=== PATIENT | female | born 1950 | race Caucasian/White ===

== ENCOUNTER 2019-01-20 22:43 | Inpatient (IN) | payer MEDICARE, OTHER ==
[~2019-01-20] VITALS: Ht 165.1 cm; Wt 93.3 kg
[~2019-01-20 22:43] MED LIST: HYDACE5 PO; NAPR550 PO
[2019-01-21 00:08] LABS: BASOPHILS ABSOLUTE AUTO 0.09 K/mm3 (0.00-0.23); BASOPHILS PERCENT AUTO 1 % (0-2); EOSINOPHILS ABSOLUTE AUTO 0.07 K/mm3 (0.00-0.68); EOSINOPHILS PERCENT AUTO 0 % (0-6); Hematocrit 41.7 % (33.0-51.0); Hemoglobin 13.5 g/dL (11.5-16.0); IMMATURE GRAN ABSOLUTE AUTO 0.58 K/mm3 (0.00-0.10); IMMATURE GRAN PERCENT AUTO 3 % (0-1); LYMPHOCYTES ABSOLUTE AUTO 1.13 K/mm3 (0.84-5.20); LYMPHOCYTES PERCENT AUTO 6 % (21-46); MONOCYTES ABSOLUTE AUTO 1.16 K/mm3 (0.16-1.47); MONOCYTES PERCENT AUTO 6 % (4-13); Mean Corpuscular HGB 30.4 pg (26.0-34.0); Mean Corpuscular HGB Conc 32.4 g/dL (31.5-36.5); Mean Corpuscular Volume 94 fL (80-100); Mean Platelet Volume 10.4 fL (9.1-12.4); NEUTROPHILS ABSOLUTE AUTO 15.64 K/mm3 (1.96-9.15); NEUTROPHILS PERCENT AUTO 84 % (41-73); Platelet Count 496 K/mm3 (150-400); RDW Coefficient Variation 14.6 % (11.7-14.2); RDW Standard Deviation 50.5 fL (35.1-46.3); Red Blood Cell Count 4.44 M/mm3 (3.80-5.20); White Blood Cell Count 18.67 K/mm3 (4.00-11.30)
[2019-01-21 00:27] LABS: Alanine Aminotransfer (ALT/SGP 62 U/L (12-78); Albumin/Globulin Ratio 0.4 (0.8-1.8); Alk Phos 165 U/L (50-136); Anion Gap 9 mmol/L (6-16); Aspartate Aminotrans (AST/SGOT 78 U/L (12-37); Bilirubin, Total 0.3 mg/dL (0.1-1.0); Blood Urea Nitrogen 28 mg/dL (8-24); CO2, Blood 27 mmol/L (21-32); Calcium, Blood 8.9 mg/dL (8.5-10.1); Chloride, Blood 96 mmol/L (98-108); Creatinine, Blood 1.12 mg/dL (0.40-1.00); Globulin, Blood 5.7 g/dL (2.2-4.0); Glomerular Filtration Rate 51 (60-); Glucose, Blood 100 mg/dL (70-99); Potassium, Blood 3.5 mmol/L (3.5-5.5); Sodium, Blood 132 mmol/L (136-145); Total Protein, Blood 7.7 g/dL (6.4-8.2); Troponin I <0.015 ng/mL (0.000-0.040)
--- NOTE | 2019-01-21 07:18 | NUR ---
SHIFT SUMMARY PT ARRIVED TO ROOM APPROX 0150. C/O PAIN IN LEGS AND MEDICATED PER EMAR. GOT ORDER FOR NORCO FROM DR GARZA SINCE PT SAID PAIN WASN'T GETTING ANY BETTER. SHE WAS ABLE TO DOZE AND ON AND OFF AFTER THE NORCO. SBA TO BA. CALL LIGHT IN REACH
--- NOTE | 2019-01-21 16:01 | NUR ---
PATIENT HAS SLEPT MOST OF THE SHIFT. SHE IS ALERT AND ORIENTED AND ABLE TO EXPRESS ANY NEEDS. HER LEGS CONTINUE TO BE DIRECTOR TRAFFIC AND PLANNING WITH CHUCKS UNDER THEM. PATIENT HAS NOT REQUESTED ANY PAIN MEDS THIS SHIFT. NO CHANGES TO CONDITION.
[2019-01-22 05:34] LABS: BASOPHILS ABSOLUTE AUTO 0.11 K/mm3 (0.00-0.23); BASOPHILS PERCENT AUTO 1 % (0-2); EOSINOPHILS ABSOLUTE AUTO 0.14 K/mm3 (0.00-0.68); EOSINOPHILS PERCENT AUTO 1 % (0-6); Hematocrit 37.1 % (33.0-51.0); IMMATURE GRAN ABSOLUTE AUTO 0.82 K/mm3 (0.00-0.10); IMMATURE GRAN PERCENT AUTO 5 % (0-1); LYMPHOCYTES ABSOLUTE AUTO 1.35 K/mm3 (0.84-5.20); LYMPHOCYTES PERCENT AUTO 8 % (21-46); MONOCYTES ABSOLUTE AUTO 0.83 K/mm3 (0.16-1.47); MONOCYTES PERCENT AUTO 5 % (4-13); Mean Corpuscular HGB 29.8 pg (26.0-34.0); Mean Corpuscular HGB Conc 32.3 g/dL (31.5-36.5); Mean Corpuscular Volume 92 fL (80-100); Mean Platelet Volume 10.1 fL (9.1-12.4); NEUTROPHILS ABSOLUTE AUTO 13.73 K/mm3 (1.96-9.15); NEUTROPHILS PERCENT AUTO 81 % (41-73); Platelet Count 554 K/mm3 (150-400); RDW Coefficient Variation 14.7 % (11.7-14.2); RDW Standard Deviation 50.7 fL (35.1-46.3); Red Blood Cell Count 4.03 M/mm3 (3.80-5.20); White Blood Cell Count 16.98 K/mm3 (4.00-11.30)
[2019-01-22 05:51] LABS: Anion Gap 9 mmol/L (6-16); Blood Urea Nitrogen 20 mg/dL (8-24); Bun/Creatinine Ratio 23.6 (12.0-20.0); CO2, Blood 26 mmol/L (21-32); Calcium, Blood 8.1 mg/dL (8.5-10.1); Chloride, Blood 101 mmol/L (98-108); Creatinine, Blood 0.85 mg/dL (0.40-1.00); Glomerular Filtration Rate >60 (60-); Glucose, Blood 128 mg/dL (70-99); Potassium, Blood 3.7 mmol/L (3.5-5.5); Sodium, Blood 136 mmol/L (136-145)
--- NOTE | 2019-01-22 06:29 | NUR ---
SHIFT SUMMARY A/O SBA TO BA. C/O PAIN IN LEGS AND MEDICATED PER EMAR X2. SHE WAS ABLE TO SLEEP THROUGH THE NIGHT. CALL LIGHT IN REACH
[2019-01-22 08:53] LABS: Alanine Aminotransfer (ALT/SGP 64 U/L (12-78); Albumin, Blood 1.7 g/dL (3.4-5.0); Albumin/Globulin Ratio 0.4 (0.8-1.8); Alk Phos 127 U/L (50-136); Aspartate Aminotrans (AST/SGOT 87 U/L (12-37); Bilirubin, Direct <0.1 mg/dL (0.0-0.3); Bilirubin, Indirect Unable to Calculate mg/dL (0.1-0.7); Bilirubin, Total 0.2 mg/dL (0.1-1.0); Globulin, Blood 4.5 g/dL (2.2-4.0); Total Protein, Blood 6.2 g/dL (6.4-8.2)
--- NOTE | 2019-01-22 17:13 | NUR ---
PATIENT HAD SHOWER THIS SHIFT AND REQUIRED PAIN MEDS FOR HER LEGS. SOME OF THE SCABS WERE WASHED OFF IN SHOWER. LEGS ARE ELEVATED ON PILLOWS AND CHUCKS AND REMAIN PLANT PACKER. SHE IS ABLE TO AMBUATE AROUND THE ROOM AND IS INDEPENDENT IN ROOM. SHE IS COOPERATIVE WITH STAFF. NO OTHER CHANGES NOTED THIS SHIFT.
--- NOTE | 2019-01-23 04:55 | NUR ---
SHIFT SUMMARY PT A/O SBA C WALKER TO BSC. C/O PAIN IN LEGS AND MEDICATED PER EMAR. SHE WAS ABLE TO DOZE ON AND OFF T/O NIGHT. CALL LIGHT IN REACH
[2019-01-23 05:09] LABS: Hematocrit 35.9 % (33.0-51.0); Hemoglobin 11.5 g/dL (11.5-16.0); Mean Corpuscular HGB 29.6 pg (26.0-34.0); Mean Corpuscular Volume 93 fL (80-100); Mean Platelet Volume 9.7 fL (9.1-12.4); Platelet Count 613 K/mm3 (150-400); RDW Coefficient Variation 14.9 % (11.7-14.2); RDW Standard Deviation 50.6 fL (35.1-46.3); Red Blood Cell Count 3.88 M/mm3 (3.80-5.20); White Blood Cell Count 16.29 K/mm3 (4.00-11.30)
[2019-01-23 05:54] LABS: Albumin, Blood 1.6 g/dL (3.4-5.0); Albumin/Globulin Ratio 0.3 (0.8-1.8); Alk Phos 123 U/L (50-136); Anion Gap 6 mmol/L (6-16); Bilirubin, Total 0.4 mg/dL (0.1-1.0); Blood Urea Nitrogen 17 mg/dL (8-24); Bun/Creatinine Ratio 23.6 (12.0-20.0); CO2, Blood 28 mmol/L (21-32); Calcium, Blood 7.9 mg/dL (8.5-10.1); Chloride, Blood 103 mmol/L (98-108); Creatinine, Blood 0.72 mg/dL (0.40-1.00); Globulin, Blood 4.6 g/dL (2.2-4.0); Glomerular Filtration Rate >60 (60-); Glucose, Blood 138 mg/dL (70-99); Potassium, Blood 4.1 mmol/L (3.5-5.5); Sodium, Blood 137 mmol/L (136-145); Total Protein, Blood 6.2 g/dL (6.4-8.2)
[2019-01-23 05:56] LABS: Alanine Aminotransfer (ALT/SGP 55 U/L (12-78); Aspartate Aminotrans (AST/SGOT 62 U/L (12-37)
[2019-01-23 06:30] LABS: BASOPHILS PERCENT MAN 0 % (0-2); EOSINOPHILS ABSOLUTE MAN 0.16 K/mm3 (0.00-0.68); EOSINOPHILS PERCENT MAN 1 % (0-6); LYMPHOCYTES PERCENT MAN 8 % (21-46); METAMYELOCYTE ABSOLUTE MAN 0.48 K/mm3 (0.00-0.00); METAMYELOCYTE PERCENT MAN 3 % (0-0); MONOCYTES ABSOLUTE MAN 0.65 K/mm3 (0.16-1.47); MONOCYTES PERCENT MAN 4 % (4-13); MYELOCYTE ABSOLUTE MAN 0.48 K/mm3 (0.00-0.00); MYELOCYTE PERCENT MAN 3 % (0-0); NEUTROPHILS ABSOLUTE MAN 13.19 K/mm3 (1.96-9.15); SEG NEUTROPHILS PERCENT MAN 81 % (41-73); TOTAL CELLS COUNTED 100
--- NOTE | 2019-01-23 17:27 | NUR ---
SHIFT SUMMARY PT A&O. CALM AND COOPERATIVE WITH CARE. PT RESTING IN BED DURING SHIFT, SBA WITH WALKER. PT REPORTS PAIN, MEDICATED X2 WITH NORCO AND X1 WITH FENTNYL. PT DENIES SOB AND N/V DURING SHIFT. PT ON RA, DIM T/O. BLE WOUNDS CLEARNED AND NEW PICTURES TAKEN, ON BLE-TOES DARK BLISTERED IN APPEARANCE, ON LEFT FOOT DARK BLISTERING ALONG ARCH AND OUTSIDE EDGE, DT TLAANG NOTIFIED, IN TO ASSESS PT, NEW ORDERS FOR CT BLE. VSS. NO OTHER ACUTE CHANGES NOTED DURING SHIFT. WILL COTNINUE TO MONITOR UNTIL REPORT GIVEN TO ONCOMING RN.
--- NOTE | 2019-01-24 05:11 | NUR ---
SHIFT SUMMARY: PT IS A&O, SBA TO BSC. CALL LIGHT APPROP. WEEPING CELLULITIS TO BLE; L LEG IS APPEARD WORSE THAN R LEG. OPEN WOUNDS, BLISTERS, AND SS DRAINAGE TO BILATERAL LEGS. WOUNDS ARE LEXIS PER ORDERS; ABSORBENT PAD UNDER BLE TO COLLECT DRAINAGE. PT IS WIMPERING IN PAIN T/O SHIFT, BESIDES DURING THE FEW HRS OF SLEEP PT HAD. TREATED 2X c PRN NORCO 10MG AND 2X c PRN FENTANYL 25 MCG. OFFERS "SOME RELIEF, BUT NOT ENOUGH" PER PT. RESP E/U ON ROOM AIR, SOB c EXERTION. PT CONT TO REFUSE SCDs REGARDLESS OF EDUCATION FOR DVT PROPHYLAXIS. NO OTHER CHANGES TO REPORT, WILL CONT TO MONITOR AND PROVIDE CARE UNTIL PRESUMED BY ONCOMING RN.
[2019-01-24 05:35] LABS: BASOPHILS ABSOLUTE AUTO 0.13 K/mm3 (0.00-0.23); BASOPHILS PERCENT AUTO 1 % (0-2); EOSINOPHILS ABSOLUTE AUTO 0.24 K/mm3 (0.00-0.68); EOSINOPHILS PERCENT AUTO 2 % (0-6); Hematocrit 37.5 % (33.0-51.0); Hemoglobin 11.7 g/dL (11.5-16.0); IMMATURE GRAN ABSOLUTE AUTO 0.98 K/mm3 (0.00-0.10); IMMATURE GRAN PERCENT AUTO 7 % (0-1); LYMPHOCYTES ABSOLUTE AUTO 1.43 K/mm3 (0.84-5.20); LYMPHOCYTES PERCENT AUTO 10 % (21-46); MONOCYTES ABSOLUTE AUTO 0.79 K/mm3 (0.16-1.47); MONOCYTES PERCENT AUTO 6 % (4-13); Mean Corpuscular HGB 30.2 pg (26.0-34.0); Mean Corpuscular HGB Conc 31.2 g/dL (31.5-36.5); Mean Corpuscular Volume 97 fL (80-100); Mean Platelet Volume 9.2 fL (9.1-12.4); NEUTROPHILS ABSOLUTE AUTO 10.72 K/mm3 (1.96-9.15); NEUTROPHILS PERCENT AUTO 75 % (41-73); Platelet Count 667 K/mm3 (150-400); RDW Coefficient Variation 15.1 % (11.7-14.2); RDW Standard Deviation 53.7 fL (35.1-46.3); Red Blood Cell Count 3.87 M/mm3 (3.80-5.20); White Blood Cell Count 14.29 K/mm3 (4.00-11.30)
[2019-01-24 05:58] LABS: Albumin, Blood 1.7 g/dL (3.4-5.0); Anion Gap 4 mmol/L (6-16); Blood Urea Nitrogen 15 mg/dL (8-24); Bun/Creatinine Ratio 20.5 (12.0-20.0); CO2, Blood 31 mmol/L (21-32); Chloride, Blood 105 mmol/L (98-108); Creatinine, Blood 0.73 mg/dL (0.40-1.00); Glomerular Filtration Rate >60 (60-); Glucose, Blood 115 mg/dL (70-99); Potassium, Blood 4.4 mmol/L (3.5-5.5); Sodium, Blood 140 mmol/L (136-145); Vancomycin, Trough 12.6 ug/mL (5.0-10.0)
--- NOTE | 2019-01-24 17:39 | NUR ---
SHIFT SUMMARY PT A&OX3, COOPERATIVE WITH CARE. PT RESTING IN BED DURING SHIFT. IND TO BSC. REPORTS PAIN TO BLE, MEDICATED PER EMAR. PT RECEIVING IV ANTIBIOTIC FOR BLE CELLULITIS, BLISTERS PRESENT, BOTH LEGS WEEPING. WOUNDS CLEANED AND AIR CHUX CHANGED. PT RECEIVING IV POTASSIUM PHOSPHATE. BLE EDEMA, LEFT WORSE THEN RIGHT. VSS. NO OTHER ACUTE CHANGES NOTED DURING SHIFT. WILL CONTINUE TO MONITOR UNTIL REPORT GIVEN TO ONCOMING RN.
[2019-01-25 05:18] LABS: BASOPHILS ABSOLUTE AUTO 0.09 K/mm3 (0.00-0.23); BASOPHILS PERCENT AUTO 1 % (0-2); EOSINOPHILS ABSOLUTE AUTO 0.29 K/mm3 (0.00-0.68); EOSINOPHILS PERCENT AUTO 2 % (0-6); Hematocrit 37.9 % (33.0-51.0); Hemoglobin 11.8 g/dL (11.5-16.0); IMMATURE GRAN ABSOLUTE AUTO 0.73 K/mm3 (0.00-0.10); IMMATURE GRAN PERCENT AUTO 6 % (0-1); LYMPHOCYTES ABSOLUTE AUTO 1.46 K/mm3 (0.84-5.20); LYMPHOCYTES PERCENT AUTO 12 % (21-46); MONOCYTES ABSOLUTE AUTO 0.82 K/mm3 (0.16-1.47); MONOCYTES PERCENT AUTO 7 % (4-13); Mean Corpuscular HGB 29.9 pg (26.0-34.0); Mean Corpuscular HGB Conc 31.1 g/dL (31.5-36.5); Mean Corpuscular Volume 96 fL (80-100); Mean Platelet Volume 9.1 fL (9.1-12.4); NEUTROPHILS ABSOLUTE AUTO 8.68 K/mm3 (1.96-9.15); NEUTROPHILS PERCENT AUTO 72 % (41-73); Platelet Count 696 K/mm3 (150-400); RDW Standard Deviation 53.9 fL (35.1-46.3); Red Blood Cell Count 3.95 M/mm3 (3.80-5.20); White Blood Cell Count 12.07 K/mm3 (4.00-11.30)
[2019-01-25 05:37] LABS: Albumin, Blood 1.8 g/dL (3.4-5.0); Anion Gap 5 mmol/L (6-16); BASOPHILS ABSOLUTE MAN 0.12 K/mm3 (0.00-0.23); BASOPHILS PERCENT MAN 1 % (0-2); Blood Urea Nitrogen 15 mg/dL (8-24); Bun/Creatinine Ratio 20.1 (12.0-20.0); CO2, Blood 27 mmol/L (21-32); Calcium, Blood 8.1 mg/dL (8.5-10.1); Chloride, Blood 106 mmol/L (98-108); Creatinine, Blood 0.75 mg/dL (0.40-1.00); EOSINOPHILS PERCENT MAN 0 % (0-6); Glomerular Filtration Rate >60 (60-); Glucose, Blood 101 mg/dL (70-99); LYMPHOCYTES ABSOLUTE MAN 1.32 K/mm3 (0.84-5.20); LYMPHOCYTES PERCENT MAN 11 % (21-46); METAMYELOCYTE ABSOLUTE MAN 0.24 K/mm3 (0.00-0.00); METAMYELOCYTE PERCENT MAN 2 % (0-0); MONOCYTES PERCENT MAN 5 % (4-13); NEUTROPHILS ABSOLUTE MAN 9.77 K/mm3 (1.96-9.15); Phosphorus, Blood 2.4 mg/dL (2.5-4.9); Potassium, Blood 4.7 mmol/L (3.5-5.5); SEG NEUTROPHILS PERCENT MAN 81 % (41-73); Sodium, Blood 138 mmol/L (136-145); TOTAL CELLS COUNTED 100
--- NOTE | 2019-01-25 06:14 | NUR ---
SHIFT SUMMARY PT IS A 68 Y/O FEMALE, ADMITTED FOR WEEPING CELLULITIS IN HER BLE. SHE REPORTED CONSTANT, BURNING PAIN IN HER LEGS AT A 10/10 WHEN ASSESSED. PRN NORCO DID NOT COVER THE PAIN WELL, ONLY BRINGING HER PAIN LEVEL DOWN TO AN 8-9/10. THE PT'S LEGS ARE WEEPING, AND ARE CURRENTLY OPEN TO AIR WITH NO DRESSING. SHE DID GET A COUPLE OF HOURS OF SLEEP DURING THE NIGHT. SHE DENIED ANY COMPLAINTS OF NAUSEA OR SOB. VITALS REMAINED STABLE. NO OTHER ACUTE CHANGES IN PT CONDITION NOTED DURING THE NIGHT. WILL CONTINUE TO MONITOR AND TREAT PER EMAR.
--- NOTE | 2019-01-25 14:05 | NUR ---
CALLED CONSULT LINE AND LEFT DETAILED MESSAGE PER REQUEST. NOT AVAILABLE UNTIL January.
--- NOTE | 2019-01-25 15:17 | NUR ---
SPOKE WITH DR.KAYLAN DAVIDSON. SHE IS PLANNING TO CONSULT WITH PT PER REQUEST AFTER OFFICE CLOSES. LE VERY PAINFUL/OOZING/SLOUGHING IN CHARACTER. SUBLIMAZE GIVEN/NORCO WELL. UP INDEP TO BSC WITH ADEQUATE OUTPUT AND EATING WELL. A/O X 3. COOP WITH CARE T/O DAY.
--- NOTE | 2019-01-25 17:34 | NUR ---
IN. NO NEW ORDERS AT THIS TIME.
--- NOTE | 2019-01-26 04:11 | NUR ---
NOC SHIFT SUMMARY PT COOPERATIVE WITH CARE. THE CELLULITIS IN HER BLE'S HAS CAUSED QUITE A LOT OF DISCOMFORT. TREATED WITH NORCO AT 2050 THEN FENTINAL AT 120 BOTH TO GOOD EFFECT, PT ABLE TO SLEEP AFTER ADMIN. NO ACUTE CHANGES NOTED THIS SHIFT. PT CURRENTLY SLEEPING. WILL CONTINUE TO MONITOR.
[2019-01-26 06:00] LABS: BASOPHILS PERCENT AUTO 1 % (0-2); EOSINOPHILS ABSOLUTE AUTO 0.29 K/mm3 (0.00-0.68); EOSINOPHILS PERCENT AUTO 2 % (0-6); Hemoglobin 12.3 g/dL (11.5-16.0); IMMATURE GRAN ABSOLUTE AUTO 0.77 K/mm3 (0.00-0.10); IMMATURE GRAN PERCENT AUTO 6 % (0-1); LYMPHOCYTES ABSOLUTE AUTO 1.77 K/mm3 (0.84-5.20); LYMPHOCYTES PERCENT AUTO 14 % (21-46); MONOCYTES ABSOLUTE AUTO 0.84 K/mm3 (0.16-1.47); MONOCYTES PERCENT AUTO 7 % (4-13); Mean Corpuscular HGB 29.4 pg (26.0-34.0); Mean Corpuscular HGB Conc 30.8 g/dL (31.5-36.5); Mean Corpuscular Volume 96 fL (80-100); Mean Platelet Volume 9.1 fL (9.1-12.4); NEUTROPHILS ABSOLUTE AUTO 8.67 K/mm3 (1.96-9.15); NEUTROPHILS PERCENT AUTO 70 % (41-73); Platelet Count 746 K/mm3 (150-400); RDW Coefficient Variation 15.2 % (11.7-14.2); RDW Standard Deviation 53.8 fL (35.1-46.3); Red Blood Cell Count 4.18 M/mm3 (3.80-5.20); White Blood Cell Count 12.44 K/mm3 (4.00-11.30)
[2019-01-26 06:22] LABS: Albumin, Blood 1.9 g/dL (3.4-5.0); Anion Gap 6 mmol/L (6-16); Blood Urea Nitrogen 16 mg/dL (8-24); Bun/Creatinine Ratio 19.8 (12.0-20.0); CO2, Blood 26 mmol/L (21-32); Calcium, Blood 8.3 mg/dL (8.5-10.1); Chloride, Blood 108 mmol/L (98-108); Creatinine, Blood 0.81 mg/dL (0.40-1.00); Glomerular Filtration Rate >60 (60-); Glucose, Blood 101 mg/dL (70-99); Phosphorus, Blood 2.3 mg/dL (2.5-4.9); Potassium, Blood 5.1 mmol/L (3.5-5.5); Sodium, Blood 140 mmol/L (136-145)
--- NOTE | 2019-01-26 08:00 | NUR ---
PT PLEASANT COOP STATES PAIN IN LEGS. MED PER EMAR. LEGS ARE WEEPY, OOZING. SWOLLEN. RED. LEXIS. H/R REG, NO MURMER NOTED. NO TELE. LUNGS CLEAR, RESP EASY, UNLABORED. MOANING R/T PAIN. BT X4 LAST BM TODAY. VOIDS PER BSC. 1 ASST. BED IN LOW POSITION, CALL LITE IN REACH, CALLS APPROP
--- NOTE | 2019-01-26 17:39 | NUR ---
PT PLEASANT TODAY. STATES WE HAVE KEPT PAIN AT BETTER LEVEL TODAY. LEGS REMAIN OOZING AND QUITE PAINFUL.. FRIENDS AND FAMILTY HAVE BEEN IN TO VISIT. NO OTHER CONCERNS AT THIS TIME. BED IN LOW POSITION, CALL LITE IN REACH, CALLS APPROP
[2019-01-27 05:12] LABS: BASOPHILS ABSOLUTE AUTO 0.09 K/mm3 (0.00-0.23); BASOPHILS PERCENT AUTO 1 % (0-2); EOSINOPHILS ABSOLUTE AUTO 0.22 K/mm3 (0.00-0.68); EOSINOPHILS PERCENT AUTO 2 % (0-6); Hematocrit 40.4 % (33.0-51.0); Hemoglobin 12.3 g/dL (11.5-16.0); IMMATURE GRAN ABSOLUTE AUTO 0.51 K/mm3 (0.00-0.10); IMMATURE GRAN PERCENT AUTO 5 % (0-1); LYMPHOCYTES ABSOLUTE AUTO 1.72 K/mm3 (0.84-5.20); LYMPHOCYTES PERCENT AUTO 17 % (21-46); MONOCYTES ABSOLUTE AUTO 0.72 K/mm3 (0.16-1.47); MONOCYTES PERCENT AUTO 7 % (4-13); Mean Corpuscular HGB 29.9 pg (26.0-34.0); Mean Corpuscular HGB Conc 30.4 g/dL (31.5-36.5); Mean Corpuscular Volume 98 fL (80-100); Mean Platelet Volume 8.8 fL (9.1-12.4); NEUTROPHILS ABSOLUTE AUTO 7.15 K/mm3 (1.96-9.15); NEUTROPHILS PERCENT AUTO 69 % (41-73); Platelet Count 646 K/mm3 (150-400); RDW Coefficient Variation 15.1 % (11.7-14.2); RDW Standard Deviation 55.1 fL (35.1-46.3); Red Blood Cell Count 4.11 M/mm3 (3.80-5.20); White Blood Cell Count 10.41 K/mm3 (4.00-11.30)
[2019-01-27 05:39] LABS: Anion Gap 7 mmol/L (6-16); Blood Urea Nitrogen 15 mg/dL (8-24); Bun/Creatinine Ratio 20.6 (12.0-20.0); CO2, Blood 25 mmol/L (21-32); Calcium, Blood 8.2 mg/dL (8.5-10.1); Chloride, Blood 108 mmol/L (98-108); Creatinine, Blood 0.73 mg/dL (0.40-1.00); Glomerular Filtration Rate >60 (60-); Glucose, Blood 135 mg/dL (70-99); Phosphorus, Blood 2.7 mg/dL (2.5-4.9); Potassium, Blood 4.8 mmol/L (3.5-5.5); Sodium, Blood 140 mmol/L (136-145)
--- NOTE | 2019-01-27 06:33 | NUR ---
NOC SHIFT SUMMARY PT HAS BEEN PLEASANT AND COOPERATIVE THIS NIGHT. HER IV WAS CAUSING A LOT OF PAIN EARLY THIS SHIFT AND WAS REPLACED. HAS BEEN MEDICATED FOR PAIN THROUGHOUT THE NIGHT. CURRENLTY SLEEPING. LEGS APPEAR IMPROVED SINCE YEATER. WEEPING IS LESS. NO ACUTE CHANGES. WILL CONTINUE TO MONITOR.
--- NOTE | 2019-01-27 17:01 | NUR ---
SHIFT SUMMARY PATIENT HAS BEEN VERY VERBAL ABOUT HER PAIN ALL DAY. SHE HAS BEEN MEDICATED AROUND THE CLOCK WITH HYDROCODONE AND FENTANYL. NO ACUTE CONCERNS BESIDES THE PAIN IN HER LEGS. THEY ARE CRACKING AND LEAKING ON THE FLOOR.
[2019-01-27 17:38] LABS: Vancomycin, Trough 15.4 ug/mL (5.0-10.0)
--- NOTE | 2019-01-28 06:38 | NUR ---
SHIFT SUMMARY PT AWAKE ON/OFF T/O NIGHT. AOX4. VSS. DENIES SOB OR N/V. REPORTS 8/10 PAIN IN BILATERAL LEGS W/MOVEMENT & STATES PAIN IS ONLY 3/10 W/O MOVEMENT. PT HAS BEEN MEDICATED 2X W/FENTANYL & 2X W/NORCO PER ORDERS. BILATERAL LEG WOUNDS ARE OPEN TO AIR W/SMALL AMOUNT SEROSANGUINEOUS DRAINAGE. PT IND TO BSC & CONTINENT. CALL LIGHT IS IN REACH & I WILL CONT TO MONITOR PT.
--- NOTE | 2019-01-28 15:04 | NUR ---
BILATERAL LOWER EXTREMITY WOUNDS CLEANED WITH WOUND CLEANSER AND A SPONGE. AT 1500 ON 01/28/2019.
--- NOTE | 2019-01-28 16:58 | NUR ---
THIS PT IS ALERT AND ORIENTED AND COOPERATIVE WITH CARE. SHE HAS WOUNDS ON HER BLE. HER WOUNDS WERE CLEANED TODAY. SHE IS INDEPENDENT TO THE [facility]. THERE IS A 20G IN HER RIGHT WRIST WITH FLUIDS RUNNING TKO. SHE HAS REFUSED ER LOVENOX TODAY. SHE IS ALMOST CONSTANTLY MOANING IN PAIN. SHE HAS RECIEVED PAIN MEDICATIONS PER EMAR. SHE HAS A VISITOR RIGHT NOW AND HASNT BEEN COMPLAINING OF PAIN. NO ACUTE CHANGES. WILL CONTINUR TO MONITOR.
--- NOTE | 2019-01-28 18:14 | NUR ---
HER IV SITE IN HER RH IS PINK, PUFFY AND PAINFUL. ANTIBIOTIC INFUSION STOPPED. SHE IS EATING DINNER. WILL DC IV CATHETER AND SET HER UP FOR A SHOWER WHEN SHE IS DONE EATING PER HER REQUEST. SHE SAYS SHE WILL ALLOW US TO RESTART HER IV AFTER THE SHOWER.
--- NOTE | 2019-01-29 05:49 | NUR ---
SHIFT SUMMARY PT AWAKE ON/OFF T/O NIGHT. AOX4. VSS. DENIES N/V OR SOB. REPORTS 8-10/10 PAIN IN BLE WOUNDS, PT FREQUENTLY MOANS IN PAIN, MEDICATED W/FENTANYL & NORCO PER ORDERS. WOUNDS HAVE SMALL AMOUNT SEROSANGUINEOUS DRAINAGE. NEW 20G IV PLACED IN L FOREARM BY SETH Mendez RN. CALL LIGHT IS IN REACH & I WILL CONT. TO MONITOR PT.
--- NOTE | 2019-01-29 17:29 | NUR ---
THIS PATIENT IS ALERT AND ORIENTED AND COOPERATIVE WITH CARE. SHE ENDURES A LOT OF PAIN IN HER BILATERAL LOWER EXTREMITIES. SHE HAS NORCO, FENTANYL AND TRAMADOL PRN FOR PAIN. SHE CONSTANTLY MOANS IN PAIN. THE WOUNDS ON HER BLE ARE EXPOSED TO AIR. THEY HAVE BEEN CLEANED TODAY WITH WOUND CLEANSER AND A SPONGE. THE 20 GAUGE IV IN HER LEFT FOREARM IS RUNNING AT 10 ML/HR TKO WITH ANTIBIOTICS SCHEDULED. NO ACUTE CHANGES, WILL CONTINUE TO MONITOR.
[2019-01-29 17:43] LABS: Creatinine, Blood 0.75 mg/dL (0.40-1.00); Vancomycin, Trough 15.5 ug/mL (5.0-10.0)
[2019-01-30 05:33] LABS: BASOPHILS ABSOLUTE AUTO 0.05 K/mm3 (0.00-0.23); BASOPHILS PERCENT AUTO 1 % (0-2); EOSINOPHILS ABSOLUTE AUTO 0.18 K/mm3 (0.00-0.68); EOSINOPHILS PERCENT AUTO 2 % (0-6); Hematocrit 35.9 % (33.0-51.0); IMMATURE GRAN ABSOLUTE AUTO 0.12 K/mm3 (0.00-0.10); IMMATURE GRAN PERCENT AUTO 1 % (0-1); LYMPHOCYTES PERCENT AUTO 20 % (21-46); MONOCYTES ABSOLUTE AUTO 0.75 K/mm3 (0.16-1.47); MONOCYTES PERCENT AUTO 9 % (4-13); Mean Corpuscular HGB 29.7 pg (26.0-34.0); Mean Corpuscular HGB Conc 30.6 g/dL (31.5-36.5); Mean Corpuscular Volume 97 fL (80-100); Mean Platelet Volume 8.9 fL (9.1-12.4); NEUTROPHILS ABSOLUTE AUTO 5.84 K/mm3 (1.96-9.15); NEUTROPHILS PERCENT AUTO 68 % (41-73); Platelet Count 572 K/mm3 (150-400); RDW Coefficient Variation 15.1 % (11.7-14.2); RDW Standard Deviation 53.9 fL (35.1-46.3); White Blood Cell Count 8.64 K/mm3 (4.00-11.30)
--- NOTE | 2019-01-30 05:55 | NUR ---
SHIFT SUMMARY PT AWAKE ON/OFF T/O NIGHT DUE TO 8/10 PAIN IN BLE, REPORTS "THEY FEEL LIKE THEY ARE BURNING," MOANS FREQUENTLY, MEDICATED W/ULTRAM, FENTANYL & NORCO PER ORDERS. BLE ARE OPEN TO AIR, RED & WARM TO TOUCH W/DRY CRACKING/PEELING SKIN & OPEN WOUNDS/SCABS, ALONG W/+2 PITTING EDEMA & SCANT AMOUNT SEROSANGUINOUS DRAINAGE. VSS. AOX4. DENIES N/V OR SOB. CALL LIGHT IS IN REACH & I WILL CONT. TO MONITOR UNTIL DAY SHIFT RN ASSUMES CARE.
[2019-01-30 07:54] LABS: Albumin, Blood 2.1 g/dL (3.4-5.0); Anion Gap 6 mmol/L (6-16); Blood Urea Nitrogen 22 mg/dL (8-24); Bun/Creatinine Ratio 31.9 (12.0-20.0); CO2, Blood 28 mmol/L (21-32); Calcium, Blood 8.4 mg/dL (8.5-10.1); Chloride, Blood 106 mmol/L (98-108); Creatinine, Blood 0.69 mg/dL (0.40-1.00); Glomerular Filtration Rate >60 (60-); Glucose, Blood 121 mg/dL (70-99); Phosphorus, Blood 3.2 mg/dL (2.5-4.9); Potassium, Blood 4.7 mmol/L (3.5-5.5); Sodium, Blood 140 mmol/L (136-145)
--- NOTE | 2019-01-30 12:12 | NUR ---
PATIENT GAVE IT INFRASTRUCTURE SPECIALIST PERMISSION TO GIVE CARE ON 01/30/19.
--- NOTE | 2019-01-30 18:28 | NUR ---
PT PLEASANT AND COOPERATIVE WITH CARE BUT VERY TEARFUL T/O THE SHIFT, REPORTS VERY PAINFUL BLE WITH A "BURING SENSATION". DR AWARE AND CHANGES MADE TO PT'S MEDS, SEE EMAR. WILL CONTINUE TO MONITOR AND REPORT TO ONCOMING RN.
[2019-01-31 05:27] LABS: Albumin, Blood 2.2 g/dL (3.4-5.0); Anion Gap 5 mmol/L (6-16); Blood Urea Nitrogen 18 mg/dL (8-24); Bun/Creatinine Ratio 23.8 (12.0-20.0); CO2, Blood 29 mmol/L (21-32); Calcium, Blood 8.4 mg/dL (8.5-10.1); Chloride, Blood 105 mmol/L (98-108); Creatinine, Blood 0.76 mg/dL (0.40-1.00); Glomerular Filtration Rate >60 (60-); Glucose, Blood 130 mg/dL (70-99); Phosphorus, Blood 2.9 mg/dL (2.5-4.9); Potassium, Blood 4.4 mmol/L (3.5-5.5); Sodium, Blood 139 mmol/L (136-145); Vancomycin, Trough 16.3 ug/mL (5.0-10.0)
--- NOTE | 2019-01-31 07:22 | NUR ---
WEATHERIZATION OPERATIONS MANAGER SUMMARY NO ACUTE CHANGES. PT AAOX4 AND COOPERATIVE WITH CARE. TREATED FOR PAIN X1 WITH ROXICODONE AND X2 WITH FENTANYL IV 50 MCG WITH GOOD PAIN RELIEF. PAIN IS STILL IN PATIENTS BLE'S. WOUNDS ON LEGS LOOK SCABBED AND DRY FOR THE MOST PART. NO OTHER COMPLAINTS FROM PT. WAS ABLE TO REST OFF/ON THROUGH THE NIGHT. VSS, WILL CONTINUE TO MONITOR.
--- NOTE | 2019-01-31 18:47 | NUR ---
NO ACUTE CHANGES NOTED THIS SHIFT, PT CONCERNS REMAIN BLE PAIN, IV TORADOL GIVEN THIS AFTERNOON AND PT ABLE TO NAP FOR A COUPLE HOURS. WILL CONTINUE TO MONITOR AND REPORT TO ONCOMING RN
--- NOTE | 2019-01-31 19:10 | NUR ---
PT GAVE THIS STUDENT RN PERMISSION TO CARE FOR HER TOMORROW.
--- NOTE | 2019-02-01 05:51 | NUR ---
OFFICE ADMIN SUMMARY PT AAOX4 AND INDEPENDENT TO THE BS. PAIN CONTROL SEEMS MUCH IMPROVED WITH IV TORADOL AND PO ULTRAM TONIGHT. ALSO MEDICATED X1 WITH ROXICODONE. PT HAS BEEN ABLE TO SLEEP FOR LONG PERIODS OF TIME NOW THAT PAIN CONTROL IS IMPROVED. PT EAGER TO BE DC'D HOME. VSS, WILL CONTINUE TO MONITOR.
[2019-02-01 05:57] LABS: Anion Gap 5 mmol/L (6-16); Blood Urea Nitrogen 23 mg/dL (8-24); Bun/Creatinine Ratio 27.8 (12.0-20.0); CO2, Blood 29 mmol/L (21-32); Calcium, Blood 8.7 mg/dL (8.5-10.1); Chloride, Blood 105 mmol/L (98-108); Creatinine, Blood 0.83 mg/dL (0.40-1.00); Glomerular Filtration Rate >60 (60-); Glucose, Blood 100 mg/dL (70-99); Potassium, Blood 4.6 mmol/L (3.5-5.5); Sodium, Blood 139 mmol/L (136-145)
--- NOTE | 2019-02-01 18:21 | NUR ---
SUMMARY PT SITTING UP IN BED WATCHING TV, PT HAS BEEN PLEASANT AND COOPERATIVE WITH CARE T/O THE DAY, MED PER EMAR FOR PAIN, PT HAS BEEN INDEP TO THE COMMODE, PT HAS BEEN UP WITH THERAPY, VSS, NO ACUTE CHANGES, WILL CONT TO MONITOR
--- NOTE | 2019-02-02 06:35 | NUR ---
68 Y/O FEMALE SLEPT ALL EVENING AFTER TAKING EVENING MEDS. PTS ALERT AND ORIENTED X 3. PTS BILATERAL LOWER LEGS ARE REDDENED AND HAVE NUMEROUS SCATTERED BLACKENED AREAS ON BOTH CALVES AND FEET WHICH ARE OPEN TO AIR (CONTACT ISOLATION MAINTAINED WITH SIGN POSTED OUTSIDE OF ROOM). PT C/O BILATERAL LOWER EXTREMITIES PAIN WITH NORCO 5/325MG PO X1 GIVEN ONCE THROUGHOUT SHIFT WITH GOOD RELIEF NOTED. PTS BED IN LOW POSITION WITH CALL LIGHT AT SIDE.
--- NOTE | 2019-02-02 06:56 | NUR ---
69 Y/O MALE STILL ON STRICT NPO LAST NIGHT. PT HAD ELEVATED BP THIS AM AT 0415 WITH 190/105 REPORTED BY RETAIL OPERATIONS MANAGER, PT WAS GIVEN HYDRALAZINE 20MG IVP WITH RECHECK IN 30 MINUTES 120/80 NOTED. PT ALSO HAD EPISODE OF NAUSEA LATE MORNING WITH ZOFRAN 4MG IVP GIVEN WITH RELIEF FELT. PT WAS TURNING FROM SIDE TO SIDE AT TIMES UNTIL 2300 LAST NIGHT WHEN HE FINALLY SLEPT FOR 2-3 HOURS STRAIGHT FROM 1100 TO 0200. PTS DAUGHTER AT SIDE ALL NIGHT. PTS PICC LINE X 3 PORTS PATENT LFA. PTS TELEMETRY NSR. PTS BED IN LOW POSITION WITH CALL LIGHT AT BEDSIDE. PT WEARING BILATERAL LOWER LEG BRACES ALL EVENING.
--- NOTE | 2019-02-02 18:02 | NUR ---
SUMMARY PT AWAKE IN BED EATING HER DINNER AND WATCHING TV, PT HAS BEEN PLEASANT AND COOPERATIVE WITH CARE, PT HAS BEEN INDEP TO THE BEDSIDE COMMODE, PT DID WORK WITH PT/OT TODAY, PT MED PER EMAR FOR PAIN IN HER BILAT LE'S, LE'S ARE DRY AND SCALY WITH MINIMAL WEEPING AND OOZING, VSS, NO ACUTE CHANGES, WILL CONT TO MONITOR
--- NOTE | 2019-02-02 23:04 | NUR ---
PTS LEFT HAND IV SQ, DC'D CATHETER INTACT.
--- NOTE | 2019-02-03 03:54 | NUR ---
68 Y/O FEMALE RESTED IN BED 1/2 NIGHT. PT C/O BILATERAL LOWER LEG PAIN RATED 5-7 AND WAS MEDICATED WITH NORCO, ULTRAM AND TORADOL WITH GOOD RELIEF FELT. PT BILATERAL LOWER EXTREMITIES HAVE DRIED SCALLY SKIN WITH SCATTERED DARKENED AREA ON CALVES AND FEET, DECREASED CELLULITIS NOTED. PTS IV WENT SQ LEFT HAND THIS EVENING AND WAS RESTARTED IN RIGHT ANTECUBITAL, 20 GAUGE BY ALDAIR WATERS. PT ALERT AND ORIENTED X3, SLIGHTLY ANXIOUS AT TIMES DUE HOSPITALIZATION. PT DENIES NAUSEA. PTS BED IN LOW POSITION AND CALL LIGHT AT SIDE.
--- NOTE | 2019-02-03 06:49 | NUR ---
0519 PT C/O BILATERAL LOWER EXTREMITIES PAIN RATED 6/10 WITH ULTRAM 50MG GIVEN. PT INITIALLY FELT RELIEF AFTER REASSESSMENT WITH ULTRAM, HOWEVER; AT 0625 SHE VOICED PAIN WAS RATED 5/10 WITH NORCO 5/325MG PO GIVEN.
[2019-02-03] MEDS ORDERED: HYDR1TAB94 PO (14:13)
[2019-02-03] MEDS ORDERED: Bactrim Ds Tab1 EACH PO (14:13)
[2019-02-03] MEDS ORDERED: Neurontin 100100 MG PO (14:14)
--- NOTE | 2019-02-03 15:38 | NUR ---
SUMMARY/DISCHARGE PT DISCHARGED TO HOME WITH HOME HEALTH, PT VERBALIZED UNDERSTANDING OF DISCHARGE INSTRUCTIONS REGARDING MEDICATIONS AND FOLLOW UP APPOINTMENTS, CARE MANAGEMENT HAS BEEN IN TO TALK WITH THE PT, PT TAKEN OUT SAFELY VIA WHEELCHAIR
== END 2019-02-03 15:17 | disposition home health service (06) | DRG 872 ==
LOC: ER 22:43 → MEDS 01-21 00:56
PROVIDERS: Emergency Medicine; Hospitalist; Internal Medicine; ADMIT Family Medicine
DX: A41.02 Sepsis due to Methicillin resistant Staphylococcus aureus (principal); L03.115 Cellulitis of right lower limb; E87.1 Hypo-osmolality and hyponatremia; N17.9 Acute kidney failure, unspecified; L03.116 Cellulitis of left lower limb; F17.210 Nicotine dependence, cigarettes, uncomplicated; I89.0 Lymphedema, not elsewhere classified; I10 Essential (primary) hypertension; D69.6 Thrombocytopenia, unspecified; E86.0 Dehydration; I83.018 Varicose veins of right lower extremity with ulcer other part of lower leg; I83.022 Varicose veins of left lower extremity with ulcer of calf; Q80.9 Congenital ichthyosis, unspecified
CPT/HCPCS: 36415; 71045; 73701; 80048; 80053; 80069; 80076; 80202; 82565; 83605; 83880; 84484; 85025; 87040; 87070; 87075; 87077; 87147; 87186; 87205; 93005; 93010; 93925; 93970; 96365; 96375; 97110; 97116; 97162; 97165; 97530; 99285-25; J0690; J1650; J1885; J1940; J3010; J3370; J7030; J7050; J7060; Q9967

== ENCOUNTER → 2019-02-08 | Outpatient (CLI) | payer MEDICARE, OTHER ==
[~2019-02-08] MED LIST changes: +Bactrim Ds Tab1 EACH PO; +HYDR1TAB94 PO; +Neurontin 100100 MG PO
== END | disposition home or self-care (01) ==
LOC: LAB SHORT 17:20 → LAB 17:20
DX: L08.0 Pyoderma (principal)
CPT/HCPCS: 87070; 87205

== ENCOUNTER → 2020-09-09 | Outpatient (CLI) | payer MEDICARE, OTHER | LOC: LAB 16:37 → LAB SHORT 16:37 | DX: L08.0 Pyoderma (principal) | CPT/HCPCS: 87070; 87077; 87147; 87186; 87205 ==

== ENCOUNTER → 2020-09-23 | Outpatient (CLI) | payer MEDICARE, OTHER | LOC: LAB 16:36 → LAB SHORT 16:36 | DX: L08.0 Pyoderma (principal) | CPT/HCPCS: 87070; 87077; 87147; 87186; 87205 ==

== ENCOUNTER 2021-07-22 17:44 | Inpatient (IN) | payer MEDICARE, OTHER ==
[~2021-07-22] VITALS: Ht 165.1 cm; Wt 81.7 kg
[2021-07-22] MEDS ORDERED: Acetaminophen650 M1 PO (18:28)
[2021-07-22 18:44] LABS: Hematocrit 43.7 % (33.0-51.0); Hemoglobin 14.2 g/dL (11.5-16.0); Mean Corpuscular HGB 28.9 pg (26.0-34.0); Mean Corpuscular HGB Conc 32.5 g/dL (31.5-36.5); Mean Corpuscular Volume 89 fL (80-100); Mean Platelet Volume 9.5 fL (9.1-12.4); Platelet Count 541 K/mm3 (150-400); RDW Coefficient Variation 16.2 % (11.7-14.2); Red Blood Cell Count 4.91 M/mm3 (3.80-5.20); White Blood Cell Count 27.44 K/mm3 (4.00-11.30)
[2021-07-22 18:56] LABS: Albumin, Blood 1.8 g/dL (3.4-5.0); Albumin/Globulin Ratio 0.3 (0.8-1.8); Bilirubin, Total 0.6 mg/dL (0.1-1.0); Bun/Creatinine Ratio 18.5 (12.0-20.0); Calcium, Blood 8.6 mg/dL (8.5-10.1); Creatinine, Blood 1.57 mg/dL (0.40-1.00); Globulin, Blood 5.4 g/dL (2.2-4.0); Potassium, Blood 4.6 mmol/L (3.5-5.5); Total Protein, Blood 7.2 g/dL (6.4-8.2)
[2021-07-22 19:05] LABS: BAND PERCENT MAN 24 % (0-8); BASOPHILS PERCENT MAN 0 % (0-2); EOSINOPHILS PERCENT MAN 0 % (0-6); LYMPHOCYTES ABSOLUTE MAN 0.27 K/mm3 (0.84-5.20); LYMPHOCYTES PERCENT MAN 1 % (21-46); METAMYELOCYTE ABSOLUTE MAN 0.27 K/mm3 (0.00-0.00); METAMYELOCYTE PERCENT MAN 1 % (0-0); MONOCYTES ABSOLUTE MAN 0.27 K/mm3 (0.16-1.47); MONOCYTES PERCENT MAN 1 % (4-13); NEUTROPHILS ABSOLUTE MAN 26.61 K/mm3 (1.96-9.15); SEG NEUTROPHILS PERCENT MAN 73 % (41-73); TOTAL CELLS COUNTED 100
[2021-07-22 19:27] LABS: International Normalized Ratio 1.26; Prothrombin Time Results 13.4 Sec (9.7-11.5)
[2021-07-22 19:32] LABS: SARS-Cov-2 (COVID-19) PCR, MMC NEGATIVE (NEGATIVE)
[2021-07-23 05:01] LABS: Hematocrit 37.7 % (33.0-51.0); Hemoglobin 12.1 g/dL (11.5-16.0); Mean Corpuscular HGB Conc 32.1 g/dL (31.5-36.5); Mean Corpuscular Volume 90 fL (80-100); Platelet Count 421 K/mm3 (150-400); RDW Coefficient Variation 16.2 % (11.7-14.2); Red Blood Cell Count 4.17 M/mm3 (3.80-5.20); White Blood Cell Count 23.74 K/mm3 (4.00-11.30)
[2021-07-23 05:35] LABS: BAND PERCENT MAN 10 % (0-8); BASOPHILS PERCENT MAN 0 % (0-2); EOSINOPHILS PERCENT MAN 0 % (0-6); LYMPHOCYTES ABSOLUTE MAN 0.23 K/mm3 (0.84-5.20); LYMPHOCYTES PERCENT MAN 1 % (21-46); MONOCYTES ABSOLUTE MAN 0.47 K/mm3 (0.16-1.47); MONOCYTES PERCENT MAN 2 % (4-13); NEUTROPHILS ABSOLUTE MAN 23.02 K/mm3 (1.96-9.15); SEG NEUTROPHILS PERCENT MAN 87 % (41-73); TOTAL CELLS COUNTED 100
[2021-07-23 05:40] LABS: Albumin, Blood 1.5 g/dL (3.4-5.0); Albumin/Globulin Ratio 0.3 (0.8-1.8); Bilirubin, Total 0.6 mg/dL (0.1-1.0); Bun/Creatinine Ratio 22.4 (12.0-20.0); Calcium, Blood 7.9 mg/dL (8.5-10.1); Creatinine, Blood 1.25 mg/dL (0.40-1.00); Globulin, Blood 4.6 g/dL (2.2-4.0); Potassium, Blood 4.6 mmol/L (3.5-5.5); Total Protein, Blood 6.1 g/dL (6.4-8.2)
--- NOTE | 2021-07-23 06:00 | NUR ---
SHIFT SUMMARY: PATIENT WAS ADMITTED TO THE FLOOR LAST NIGHT FOR CELLULITIS OF THE BLE. ARRIVED VIA GURNEY AND TRANSFERED TO BED USING SLIDER SHEET. PATIENT IS AOX3 BUT VERY TIRED AND OUT OF IT FROM PAIN MEDS. VS TACHY IN 110-120'S. SATS GOOD ON RA. FEBRILE IN ER BUT AFEBRILE ON THE FLOOR. DENIES CHEST PAIN. OCCATIONAL SOB SHE SAID. NO COUGH OR CONGSTION, COVID NEGATIVE. STATES SHE LIVES ALONE AND GETS HELPS FROM FRIENDS. BY THE LOOK OF HER CLOTHES HER SKIN CONDITION, SHE HAS NOT BEEN ABLE TO CARE FOR SELF LET ALONE ANYONE HELPING HER. OPEN SORES ON BOTTOM WITH SOME INDURATED AREAS IN THE GROIN AREA. SEVERAL OPEN AREAS ON THE INNER BUTTOCKS AREA, VERY RED AND INFLAMMED. LABIAS ARE WHITE FROM MOISTURE AND PEELING, INSIDE OF VAGINAL AREA IS INFLAMMED. THERE IS A SKIN TAG ON HER LEFT INNER THIGH THAT IS OPEN. RLE LOOKS LIKE IT WAS BURNED, SHE IS MISSING SKIN ON THE CALF THAT IS SLOUGHING OFF, BLISTER THAT POPPED ON THE INNER THIGH ON THE RIGHT OPEN AND DRAINING. THIS LEG IS WEEPING COUPES AMOUNTS. RIGHT FOOT TOES MISSING SKIN ON THEM AND STRONG ODOR TO THEM. LLE TIGHT, FIRM, ROUGH SKIN WITH SEVERAL OPEN AREA, PAINFUL TO EVEN MOVE, TOES ARE TURNING BLACK AND SEVERA PAIN. HAD TO DRESS THE RLE BECAUSE THE SHEET WAS STICKING TO HER LEG AND REMOVING CHUNCKS OF SKIN OFF OF IT. WHEN CLEANING HER LEG REMOVED BROWN DIRT FROM IT AND LOTS OF HAIR. MEDICATED HER FOR PAIN. HISTORY OF MRSA, PLACED IN CONTACT ISOLATION. IVF FINISHED. FAIR APPETITE. REPORT GIVEN TO DAYSHIFT. PICTURES OF WOUNDS IN CHAIR. CALL LIGHT REMAINED IN REACH.
[2021-07-23 18:47] LABS: Vancomycin, Trough 4.8 ug/mL (5.0-10.0)
--- NOTE | 2021-07-23 19:37 | NUR ---
PT WAS ALERT AND ORIENTED X4 THIS SHIFT. MEDICATED PER EMAR FOR PAIN ALONG WITH IV ABT'S. STAFF WILL CONTINUE TO MONITOR.
--- NOTE | 2021-07-24 07:41 | NUR ---
SHIFT SUMMARY: AOX3, INCONTIENT OF URINE AND STOOL. OUTTER DRESSING CHANGED ON THE RLE, VERY PAINFUL TO EVEN HAVE THE AIR TOUCH IT. REDNESS AND SWELLING DECREASED . BLISTER ON INNER THIGH IS HEALING WELL, DRAINAGE IS STILL SEROUS. TOES ARE DRYING UP, DEECREASE IN EDEMA ALL OVER. REDNESS DOWN ON BOTH LEGS. IMPROVEMENT ON VAGINAL REDNESS WELL. MEDICATED FOR PAIN X2. SLEPT IN BETWEEN PAIN MEDS. VS WNL, AFEBRILE. CALL LIGHT IN REACH.
[2021-07-24 08:33] LABS: BASOPHILS ABSOLUTE AUTO 0.02 K/mm3 (0.00-0.23); BASOPHILS PERCENT AUTO 0 % (0-2); EOSINOPHILS ABSOLUTE AUTO 0.11 K/mm3 (0.00-0.68); EOSINOPHILS PERCENT AUTO 1 % (0-6); Hematocrit 34.6 % (33.0-51.0); Hemoglobin 11.2 g/dL (11.5-16.0); IMMATURE GRAN ABSOLUTE AUTO 0.17 K/mm3 (0.00-0.10); IMMATURE GRAN PERCENT AUTO 1 % (0-1); LYMPHOCYTES ABSOLUTE AUTO 0.78 K/mm3 (0.84-5.20); LYMPHOCYTES PERCENT AUTO 6 % (21-46); MONOCYTES PERCENT AUTO 4 % (4-13); Mean Corpuscular HGB 28.9 pg (26.0-34.0); Mean Corpuscular HGB Conc 32.4 g/dL (31.5-36.5); Mean Corpuscular Volume 89 fL (80-100); Mean Platelet Volume 9.4 fL (9.1-12.4); NEUTROPHILS ABSOLUTE AUTO 12.46 K/mm3 (1.96-9.15); NEUTROPHILS PERCENT AUTO 88 % (41-73); Platelet Count 375 K/mm3 (150-400); RDW Coefficient Variation 16.4 % (11.7-14.2); RDW Standard Deviation 53.5 fL (35.1-46.3); Red Blood Cell Count 3.87 M/mm3 (3.80-5.20); White Blood Cell Count 14.14 K/mm3 (4.00-11.30)
[2021-07-24 08:43] LABS: Alanine Aminotransfer (ALT/SGP 19 U/L (12-78); Albumin, Blood 1.4 g/dL (3.4-5.0); Albumin/Globulin Ratio 0.3 (0.8-1.8); Alk Phos 119 U/L (50-136); Anion Gap 7 mmol/L (6-16); Aspartate Aminotrans (AST/SGOT 19 U/L (12-37); Bilirubin, Total 0.4 mg/dL (0.1-1.0); Blood Urea Nitrogen 30 mg/dL (8-24); Bun/Creatinine Ratio 34.9 (12.0-20.0); CO2, Blood 24 mmol/L (21-32); Calcium, Blood 8.3 mg/dL (8.5-10.1); Chloride, Blood 108 mmol/L (98-108); Creatinine, Blood 0.86 mg/dL (0.40-1.00); Globulin, Blood 4.8 g/dL (2.2-4.0); Glomerular Filtration Rate >60 (60-); Glucose, Blood 110 mg/dL (70-99); Potassium, Blood 4.2 mmol/L (3.5-5.5); Sodium, Blood 139 mmol/L (136-145); Total Protein, Blood 6.2 g/dL (6.4-8.2)
--- NOTE | 2021-07-24 19:46 | NUR ---
SUMMARY- PT A/O, USES CALL LIGHT. IN BED MOST OF SHIFT WITH LEGS ELEVATED. DRESSING CHANGE TO OPEN ULCERATIOS RLE, XEREFORM, ABD, KERLEX, FRANKY. MEDICATED FOR PAIN DILAUDID WITH RELEIF. TOLERATING FOOD AND FLUID.
[2021-07-25 05:03] LABS: BASOPHILS ABSOLUTE AUTO 0.03 K/mm3 (0.00-0.23); BASOPHILS PERCENT AUTO 0 % (0-2); EOSINOPHILS ABSOLUTE AUTO 0.19 K/mm3 (0.00-0.68); EOSINOPHILS PERCENT AUTO 2 % (0-6); Hematocrit 34.3 % (33.0-51.0); Hemoglobin 10.9 g/dL (11.5-16.0); IMMATURE GRAN ABSOLUTE AUTO 0.14 K/mm3 (0.00-0.10); IMMATURE GRAN PERCENT AUTO 1 % (0-1); LYMPHOCYTES ABSOLUTE AUTO 0.87 K/mm3 (0.84-5.20); LYMPHOCYTES PERCENT AUTO 8 % (21-46); MONOCYTES ABSOLUTE AUTO 0.74 K/mm3 (0.16-1.47); MONOCYTES PERCENT AUTO 7 % (4-13); Mean Corpuscular HGB 28.8 pg (26.0-34.0); Mean Corpuscular HGB Conc 31.8 g/dL (31.5-36.5); Mean Corpuscular Volume 91 fL (80-100); Mean Platelet Volume 9.9 fL (9.1-12.4); NEUTROPHILS ABSOLUTE AUTO 9.15 K/mm3 (1.96-9.15); NEUTROPHILS PERCENT AUTO 82 % (41-73); NRBC ABSOLUTE 0.02 K/mm3 (0.00-0.02); NRBC Auto 0.2 /100 WBC (0.0-0.2); Platelet Count 353 K/mm3 (150-400); RDW Coefficient Variation 16.5 % (11.7-14.2); RDW Standard Deviation 54.7 fL (35.1-46.3); Red Blood Cell Count 3.78 M/mm3 (3.80-5.20); White Blood Cell Count 11.12 K/mm3 (4.00-11.30)
--- NOTE | 2021-07-25 06:01 | NUR ---
SHIFT SUMMARY: VS WNL. AFEBRILE. PAIN CONTROLLED BETTER WITH NORCO. WAS ABLE TO GET SLEEP. LEGS HAVE IMPROVED IN COLOR AND SWELLING. DOES HAVE PAIN IN AREAS WHERE THE SKIN IS DRYING AND WRINKLING. PLACED TRIPLE ANTIBOTIC OINTMENT ON TOES. BARRIER CREAM ON CLOSED AREA OF THE LEGS. NO OTHER CHANGES WILL CONTINUE TO MONITOR. CALL LIGHT IN REACH.
[2021-07-25 06:03] LABS: Alanine Aminotransfer (ALT/SGP 33 U/L (12-78); Albumin, Blood 1.4 g/dL (3.4-5.0); Albumin/Globulin Ratio 0.3 (0.8-1.8); Alk Phos 139 U/L (50-136); Anion Gap 2 mmol/L (6-16); Aspartate Aminotrans (AST/SGOT 39 U/L (12-37); Bilirubin, Total 0.3 mg/dL (0.1-1.0); Blood Urea Nitrogen 25 mg/dL (8-24); Bun/Creatinine Ratio 27.8 (12.0-20.0); CO2, Blood 29 mmol/L (21-32); Calcium, Blood 7.9 mg/dL (8.5-10.1); Chloride, Blood 107 mmol/L (98-108); Globulin, Blood 4.9 g/dL (2.2-4.0); Glomerular Filtration Rate >60 (60-); Glucose, Blood 88 mg/dL (70-99); Potassium, Blood 4.3 mmol/L (3.5-5.5); Sodium, Blood 138 mmol/L (136-145); Total Protein, Blood 6.3 g/dL (6.4-8.2)
[2021-07-25 19:19] LABS: Vancomycin, Trough 4.6 ug/mL (5.0-10.0)
--- NOTE | 2021-07-25 21:04 | NUR ---
SUMMARY- PT A/O X4. BEDREST WITH ROUTINE TURNS, INCONT ATTEND CHANGE. UP TO EDGE OF BED TODAY WITH OT. TOLERATING FOOD AND FLUIDS. PAIN IN LE CONTROLLED WITH LORTAB. GIVEN DILAUDID BEFORE DRESSING CHANGE. XEREFORM TO RLE, ABD, KERLEX AND FRANKY. CLEANSED INBETWEEN TOES AND APPLIED ABX OINT TO CRUSTY SCABS. BLISTERS ALL TOES ON L FOOT. VANCO TROUGH DRAWN. NEW ORDERS FOR VANC. REOPRT TO NOC.
[2021-07-26 05:36] LABS: BASOPHILS ABSOLUTE AUTO 0.07 K/mm3 (0.00-0.23); BASOPHILS PERCENT AUTO 1 % (0-2); EOSINOPHILS ABSOLUTE AUTO 0.21 K/mm3 (0.00-0.68); EOSINOPHILS PERCENT AUTO 2 % (0-6); Hematocrit 35.3 % (33.0-51.0); Hemoglobin 11.3 g/dL (11.5-16.0); IMMATURE GRAN ABSOLUTE AUTO 0.21 K/mm3 (0.00-0.10); IMMATURE GRAN PERCENT AUTO 2 % (0-1); LYMPHOCYTES ABSOLUTE AUTO 1.09 K/mm3 (0.84-5.20); LYMPHOCYTES PERCENT AUTO 12 % (21-46); MONOCYTES ABSOLUTE AUTO 0.69 K/mm3 (0.16-1.47); MONOCYTES PERCENT AUTO 7 % (4-13); Mean Corpuscular HGB 28.8 pg (26.0-34.0); Mean Corpuscular Volume 90 fL (80-100); NEUTROPHILS ABSOLUTE AUTO 7.19 K/mm3 (1.96-9.15); NEUTROPHILS PERCENT AUTO 76 % (41-73); Platelet Count 377 K/mm3 (150-400); RDW Coefficient Variation 16.4 % (11.7-14.2); RDW Standard Deviation 54.6 fL (35.1-46.3); Red Blood Cell Count 3.93 M/mm3 (3.80-5.20); White Blood Cell Count 9.46 K/mm3 (4.00-11.30)
[2021-07-26 06:03] LABS: Alanine Aminotransfer (ALT/SGP 35 U/L (12-78); Albumin, Blood 1.4 g/dL (3.4-5.0); Albumin/Globulin Ratio 0.3 (0.8-1.8); Alk Phos 144 U/L (50-136); Anion Gap 4 mmol/L (6-16); Aspartate Aminotrans (AST/SGOT 39 U/L (12-37); Bilirubin, Total 0.3 mg/dL (0.1-1.0); Blood Urea Nitrogen 22 mg/dL (8-24); Bun/Creatinine Ratio 23.8 (12.0-20.0); CO2, Blood 28 mmol/L (21-32); Calcium, Blood 7.9 mg/dL (8.5-10.1); Chloride, Blood 107 mmol/L (98-108); Creatinine, Blood 0.92 mg/dL (0.40-1.00); Globulin, Blood 4.9 g/dL (2.2-4.0); Glomerular Filtration Rate >60 (60-); Glucose, Blood 97 mg/dL (70-99); Potassium, Blood 4.5 mmol/L (3.5-5.5); Sodium, Blood 139 mmol/L (136-145); Total Protein, Blood 6.3 g/dL (6.4-8.2)
--- NOTE | 2021-07-26 08:06 | NUR ---
SHIFT SUMMARY: NO ACUTE CHANGES THIS SHIFT. BILATERAL LEG EDEMA AND REDNESS CONTINUE TO IMPROVE. RIGHT FOOT TOES VERY DRY AND CRACKING, USING TRIPLE ANTIBOTIC ON THEM. DRESSING IN PLACE ON RLE. MEDICATED FOR PAIN X1. SLEPT WELL. ABLE TO MAKE NEEDS KNOWN.
--- NOTE | 2021-07-26 19:28 | NUR ---
SHIFT SUMMARY: PT HAD NO ACUTE CHANGES. DRESSINGS CDI TO RLE. REDNESS SHOWS LITTLE IMPROVEMENT TO L LEG. PT ABLE TO GET UP TO BATHROOM 2 TIMES TODAY.
--- NOTE | 2021-07-27 05:00 | NUR ---
SHIFT SUMMARY NO ACUTE CHANGES TO REPORT TO THIS SHIFT, PT HAS RESTED MOST OF THE NIGHT. MEDICATED FOR BLE PAIN PER EMAR ORDERS. PT LLE WRAPPED IN FRANKY WRAP. IV ANTIBIOTICS CONTINUED ORDERED. PT SLEEPS MOST OF THE NIGHT. A/OX4, MAKES NEEDS KNOWN. BED IN LOWEST POSITION, CALL LIGHT WITHIN REACH.
[2021-07-27 06:07] LABS: BASOPHILS ABSOLUTE AUTO 0.08 K/mm3 (0.00-0.23); BASOPHILS PERCENT AUTO 1 % (0-2); EOSINOPHILS ABSOLUTE AUTO 0.21 K/mm3 (0.00-0.68); EOSINOPHILS PERCENT AUTO 2 % (0-6); Hematocrit 34.1 % (33.0-51.0); Hemoglobin 10.9 g/dL (11.5-16.0); IMMATURE GRAN ABSOLUTE AUTO 0.37 K/mm3 (0.00-0.10); IMMATURE GRAN PERCENT AUTO 4 % (0-1); LYMPHOCYTES ABSOLUTE AUTO 1.02 K/mm3 (0.84-5.20); LYMPHOCYTES PERCENT AUTO 10 % (21-46); MONOCYTES ABSOLUTE AUTO 0.64 K/mm3 (0.16-1.47); MONOCYTES PERCENT AUTO 6 % (4-13); Mean Corpuscular HGB 28.3 pg (26.0-34.0); Mean Corpuscular Volume 89 fL (80-100); NEUTROPHILS ABSOLUTE AUTO 8.07 K/mm3 (1.96-9.15); NEUTROPHILS PERCENT AUTO 78 % (41-73); Platelet Count 397 K/mm3 (150-400); RDW Coefficient Variation 16.3 % (11.7-14.2); RDW Standard Deviation 52.8 fL (35.1-46.3); Red Blood Cell Count 3.85 M/mm3 (3.80-5.20); White Blood Cell Count 10.39 K/mm3 (4.00-11.30)
[2021-07-27 06:35] LABS: Alanine Aminotransfer (ALT/SGP 30 U/L (12-78); Albumin, Blood 1.5 g/dL (3.4-5.0); Albumin/Globulin Ratio 0.3 (0.8-1.8); Alk Phos 124 U/L (50-136); Anion Gap 1 mmol/L (6-16); Aspartate Aminotrans (AST/SGOT 27 U/L (12-37); Bilirubin, Total 0.3 mg/dL (0.1-1.0); Blood Urea Nitrogen 17 mg/dL (8-24); Bun/Creatinine Ratio 21.9 (12.0-20.0); CO2, Blood 30 mmol/L (21-32); Calcium, Blood 7.1 mg/dL (8.5-10.1); Chloride, Blood 106 mmol/L (98-108); Creatinine, Blood 0.78 mg/dL (0.40-1.00); Globulin, Blood 4.7 g/dL (2.2-4.0); Glomerular Filtration Rate >60 (60-); Glucose, Blood 84 mg/dL (70-99); Magnesium, Blood 1.9 mg/dL (1.6-2.4); Phosphorus, Blood 2.5 mg/dL (2.5-4.9); Potassium, Blood 4.7 mmol/L (3.5-5.5); Sodium, Blood 137 mmol/L (136-145); Total Protein, Blood 6.2 g/dL (6.4-8.2)
--- NOTE | 2021-07-27 19:21 | NUR ---
SHIFT SUMMARY: PT HAD NO ACUTE CHANGES THIS SHIFT.
--- NOTE | 2021-07-28 04:17 | NUR ---
SHIFT SUMMARY PT HAS RESTED MOST OF THE NIGHT. PT MEDICATED FOR BLE PAIN PER ORDERS. IV ANTIBIOTICS CONTINUED ORDERED. PT HAS BEEN INCONTINENT THIS SHIFT. A/OX4, BUT FLAT AND WITHDRAWN. NO ACUTE CHANGES OVERNIGHT. BED IN LOWEST POSITION, CALL LIGHT WITHIN REACH.
[2021-07-28 06:44] LABS: BASOPHILS ABSOLUTE AUTO 0.06 K/mm3 (0.00-0.23); BASOPHILS PERCENT AUTO 1 % (0-2); EOSINOPHILS ABSOLUTE AUTO 0.16 K/mm3 (0.00-0.68); EOSINOPHILS PERCENT AUTO 2 % (0-6); Hematocrit 36.5 % (33.0-51.0); Hemoglobin 11.8 g/dL (11.5-16.0); IMMATURE GRAN ABSOLUTE AUTO 0.35 K/mm3 (0.00-0.10); IMMATURE GRAN PERCENT AUTO 4 % (0-1); LYMPHOCYTES ABSOLUTE AUTO 1.12 K/mm3 (0.84-5.20); LYMPHOCYTES PERCENT AUTO 12 % (21-46); MONOCYTES ABSOLUTE AUTO 0.62 K/mm3 (0.16-1.47); MONOCYTES PERCENT AUTO 7 % (4-13); Mean Corpuscular HGB 28.6 pg (26.0-34.0); Mean Corpuscular HGB Conc 32.3 g/dL (31.5-36.5); Mean Corpuscular Volume 88 fL (80-100); Mean Platelet Volume 9.6 fL (9.1-12.4); NEUTROPHILS ABSOLUTE AUTO 6.82 K/mm3 (1.96-9.15); NEUTROPHILS PERCENT AUTO 75 % (41-73); Platelet Count 443 K/mm3 (150-400); RDW Coefficient Variation 16.3 % (11.7-14.2); RDW Standard Deviation 52.3 fL (35.1-46.3); Red Blood Cell Count 4.13 M/mm3 (3.80-5.20); White Blood Cell Count 9.13 K/mm3 (4.00-11.30)
[2021-07-28 07:21] LABS: Alanine Aminotransfer (ALT/SGP 29 U/L (12-78); Albumin, Blood 1.7 g/dL (3.4-5.0); Albumin/Globulin Ratio 0.3 (0.8-1.8); Alk Phos 132 U/L (50-136); Anion Gap 5 mmol/L (6-16); Aspartate Aminotrans (AST/SGOT 23 U/L (12-37); Bilirubin, Total 0.3 mg/dL (0.1-1.0); Blood Urea Nitrogen 15 mg/dL (8-24); Bun/Creatinine Ratio 19.6 (12.0-20.0); CO2, Blood 26 mmol/L (21-32); Calcium, Blood 8.3 mg/dL (8.5-10.1); Chloride, Blood 106 mmol/L (98-108); Creatinine, Blood 0.76 mg/dL (0.40-1.00); Globulin, Blood 5.1 g/dL (2.2-4.0); Glomerular Filtration Rate >60 (60-); Glucose, Blood 107 mg/dL (70-99); Potassium, Blood 4.5 mmol/L (3.5-5.5); Sodium, Blood 137 mmol/L (136-145); Total Protein, Blood 6.8 g/dL (6.4-8.2)
--- NOTE | 2021-07-28 12:16 | NUR ---
PT NEEDING ULTRASOUND OF LEGS, BUT HAVING EXTREME PAIN WITH TOUCH. DR. GALVEZ ORDERED ONE TIME DOSE OF FENTANYL 50 MCG IV. ORDER PLACED.
--- NOTE | 2021-07-28 20:06 | NUR ---
SHIFT SUMMARY: PT A/O X3, STANDBY ASSIST W/GAIT BELT. PT CELLULITIS IS SHOWING IMPROVEMENT REDNESS APPROX 50% LESS. SWELLING TO RLE REDUCED. DRESSING CHANGE COMPLETED TONIGHT. WOUNDS TO LLE CLEANSED W/STERILE WATER AND GAUZE AND PATTED DRY. XEROFORM PLACED OVER OPEN AREAS WHICH HAS GRANULATION TISSUE FORMING. NOTED SMALL AREA OF PURULENT YELLOW DRAINAGE TO POSTERIOR UPPER CALF AREA SMALL AREA. PLACED EXUDRY FOR DRAINAGE AND WRAPPED WITH KERLEX AND FRANKY BANDAGE. PT TOLERATED WELL.
--- NOTE | 2021-07-29 08:39 | NUR ---
Shift Summary Dressing to RLE changed at start of shift, remains C/D/I. Patient request brooklynn wrapped loosely. Medicated x 1 for leg pain with adequate relief. SBA to bathroom. RLE weeping.
[2021-07-29 13:15] LABS: BASOPHILS ABSOLUTE AUTO 0.06 K/mm3 (0.00-0.23); BASOPHILS PERCENT AUTO 1 % (0-2); EOSINOPHILS ABSOLUTE AUTO 0.16 K/mm3 (0.00-0.68); EOSINOPHILS PERCENT AUTO 2 % (0-6); Hematocrit 35.4 % (33.0-51.0); Hemoglobin 11.3 g/dL (11.5-16.0); IMMATURE GRAN ABSOLUTE AUTO 0.22 K/mm3 (0.00-0.10); IMMATURE GRAN PERCENT AUTO 3 % (0-1); LYMPHOCYTES ABSOLUTE AUTO 1.22 K/mm3 (0.84-5.20); LYMPHOCYTES PERCENT AUTO 16 % (21-46); MONOCYTES ABSOLUTE AUTO 0.59 K/mm3 (0.16-1.47); MONOCYTES PERCENT AUTO 8 % (4-13); Mean Corpuscular HGB 28.3 pg (26.0-34.0); Mean Corpuscular HGB Conc 31.9 g/dL (31.5-36.5); Mean Corpuscular Volume 89 fL (80-100); Mean Platelet Volume 9.2 fL (9.1-12.4); NEUTROPHILS ABSOLUTE AUTO 5.63 K/mm3 (1.96-9.15); NEUTROPHILS PERCENT AUTO 71 % (41-73); Platelet Count 492 K/mm3 (150-400); RDW Coefficient Variation 16.7 % (11.7-14.2); RDW Standard Deviation 53.9 fL (35.1-46.3); White Blood Cell Count 7.88 K/mm3 (4.00-11.30)
[2021-07-29 13:48] LABS: Alanine Aminotransfer (ALT/SGP 25 U/L (12-78); Albumin, Blood 1.8 g/dL (3.4-5.0); Albumin/Globulin Ratio 0.4 (0.8-1.8); Alk Phos 120 U/L (50-136); Anion Gap 4 mmol/L (6-16); Aspartate Aminotrans (AST/SGOT 23 U/L (12-37); Bilirubin, Total 0.2 mg/dL (0.1-1.0); Blood Urea Nitrogen 15 mg/dL (8-24); Bun/Creatinine Ratio 19.5 (12.0-20.0); CO2, Blood 28 mmol/L (21-32); Calcium, Blood 8.2 mg/dL (8.5-10.1); Chloride, Blood 109 mmol/L (98-108); Creatinine, Blood 0.77 mg/dL (0.40-1.00); Globulin, Blood 5.1 g/dL (2.2-4.0); Glomerular Filtration Rate >60 (60-); Glucose, Blood 96 mg/dL (70-99); Potassium, Blood 4.3 mmol/L (3.5-5.5); Sodium, Blood 141 mmol/L (136-145); Total Protein, Blood 6.9 g/dL (6.4-8.2)
--- NOTE | 2021-07-29 19:20 | NUR ---
ASSUMED CARE RECEIVED REPORT FROM ALDAIR LEROY. PT RESTING, IN NAD. NO ACUTE NEEDS ASSESSED AT THIS TIME.
--- NOTE | 2021-07-29 20:14 | NUR ---
PT RESTING IN BED AFTER DINNER AND PM FINAL TOUCH UP PAINTER. REMAINS ALERT AND OREINTED X4. PAIN TREATED PER EMAR THIS SHIFT. STAFF WILL CONT TO MONITOR.
--- NOTE | 2021-07-30 07:30 | NUR ---
SHIFT SUMMARY PT RESTING, IN NAD. NO ACUTE CONCERNS TO REPORT OVERNIGHT, APPEARED TO SLEEP WELL. DRSGS TO BLE DRY AND INTACT, PT REFUSED DRSG CHANGES. VS REVIEWED,WNL. NO ACUTE NEEDS ASSESSED AT THIS TIME. CALL LIGHT, POSSESSIONS IN REACH, BED IN LOW AND LOCKED POSITION. REPORT GIVEN TO ALDAIR LEROY.
--- NOTE | 2021-07-30 20:05 | NUR ---
PT IS ALERT AND ORIENTED X4, C/O GENERALIZED PAIN AND TREATED PER EMAR. PT WORKED WITH PT, HAD XRAYS AND TOOK SHOWER THIS SHIFT. ALL WOUNDS HAVE BEEN CLEANED AND DRESSED. NEW PICURES IN CHART. STAFF WILL CONTINUE TO MONITOR.
--- NOTE | 2021-07-31 07:46 | NUR ---
SHIFT SUMMARY A/O, ABLE TO MAKE NEEDS KNOWN. COOPERATIVE WITH CARE. CALLS AND ANSWERS QUESTIONS APPROPRIATELY. C/O PAIN/DISCOMFORT TO BLE; MEDICATED PER EMAR. APPEARED TO REST MUCH OF THE NIGHT. BED REMAINS IN LOWEST POSITION. CALL LIGHT AND BELONGINGS WITHIN REACH. CONTINUE WITH CURRENT PLAN OF CARE. REPORT GIVEN TO ONCOMING RN.
[2021-07-31 12:27] LABS: SARS-Cov-2 (COVID-19) PCR, MMC NEGATIVE (NEGATIVE)
[2021-07-31] MEDS ORDERED: AMOCLA875 PO (12:34)
[2021-07-31] MEDS ORDERED: GABA300 PO (12:35)
[2021-07-31] MEDS ORDERED: DOCU100 PO (12:35)
[2021-07-31] MEDS ORDERED: METF500 PO (12:36)
[2021-07-31] MEDS ORDERED: Lisinopril-Hct1 EAC4 PO (12:36)
[2021-07-31] MEDS ORDERED: VISBIOME 112.51 EACH PO (12:37)
[2021-07-31] MEDS ORDERED: SULTRIDS PO (12:37)
--- NOTE | 2021-07-31 14:15 | NUR ---
DISCHARGE SUMMARY PT DISCHARGED TO [facility]. PT LEFT ROOM AT [address] [facility]. POWERGLIDE DC'D AND BELONGINGS RETURNED. REPORT CALLED AND GIVEN TO NURSE AT [facility], ALL QUESTIONS ANSWERED.
== END 2021-07-31 13:45 | DRG 872 ==
LOC: ER 17:44 → MEDS 22:16
PROVIDERS: Family Medicine; Pharmacist; Physician Assistant; ADMIT Internal Medicine
DX: A40.0 Sepsis due to streptococcus, group A (principal); L03.115 Cellulitis of right lower limb; L03.116 Cellulitis of left lower limb; N17.9 Acute kidney failure, unspecified; I10 Essential (primary) hypertension; E11.65 Type 2 diabetes mellitus with hyperglycemia; E11.51 Type 2 diabetes mellitus with diabetic peripheral angiopathy without gangrene; E66.01 Morbid (severe) obesity due to excess calories; Z68.30 Body mass index [BMI] 30.0-30.9, adult; R65.20 Severe sepsis without septic shock; F17.210 Nicotine dependence, cigarettes, uncomplicated; Z88.5 Allergy status to narcotic agent; Z90.711 Acquired absence of uterus with remaining cervical stump
CPT/HCPCS: 36415; 73701; 75635; 80053; 80202; 82947; 83036; 83605; 83735; 84100; 85025; 85610; 85730; 86140; 87040; 87147; 93005; 93010; 93306; 93925; 96365-59; 96366; 96367-59; 96375-59; 96376; 97110; 97162; 97165; 97530; 97535; 99285-25; A9270; J0360; J0690; J1170; J1650; J1815; J2185; J2543; J3010; J3370; J7030; J7050; Q9967; U0004

== ENCOUNTER → 2021-12-31 | Outpatient (CLI) | payer MEDICARE, OTHER ==
[~2021-12-31] MED LIST changes: +AMOCLA875 PO; +Acetaminophen650 M1 PO; +DOCU100 PO; +GABA300 PO; +Lisinopril-Hct1 EAC4 PO; +METF500 PO; +SULTRIDS PO; +VISBIOME 112.51 EACH PO
== END | disposition home or self-care (01) ==
LOC: LAB SHORT 16:03
DX: E11.9 Type 2 diabetes mellitus without complications (principal)
CPT/HCPCS: 82043

== ENCOUNTER 2023-10-17 17:20 | Emergency (ER) | payer MEDICARE, OTHER ==
[~2023-10-17] VITALS: Ht 165.1 cm; Wt 77.1 kg
[2023-10-17 17:25] VITALS: BP 190/94
[2023-10-17] MEDS ORDERED: Percocet 5-3251 EACH PO (18:24)
== END 2023-10-17 18:42 | disposition home or self-care (01) ==
LOC: ER 17:20
DX: S42.211A Unspecified displaced fracture of surgical neck of right humerus, initial encounter for closed fracture (principal); W10.9XXA Fall (on) (from) unspecified stairs and steps, initial encounter; Z88.5 Allergy status to narcotic agent; Z79.899 Other long term (current) drug therapy; Z79.84 Long term (current) use of oral hypoglycemic drugs
CPT/HCPCS: 73030; 99283-25; A9270

== ENCOUNTER → 2024-05-01 | Outpatient (CLI) | payer MEDICARE, OTHER ==
[~2024-05-01] MED LIST changes: +Percocet 5-3251 EACH PO
== END ==
LOC: LAB 16:45 → LAB SHORT 16:45
DX: L08.0 Pyoderma (principal)
CPT/HCPCS: 87070; 87077; 87147; 87186; 87205

== ENCOUNTER → 2024-05-22 | Outpatient (CLI) | payer MEDICARE, OTHER | LOC: LAB 16:41 → LAB SHORT 16:41 | DX: L08.0 Pyoderma (principal); B95.62 Methicillin resistant Staphylococcus aureus infection as the cause of diseases classified elsewhere; Z16.24 Resistance to multiple antibiotics | CPT/HCPCS: 87070; 87077; 87147; 87186; 87205 ==

== ENCOUNTER → 2024-06-06 | Outpatient (CLI) | payer MEDICARE, OTHER | LOC: LAB 17:15 → LAB SHORT 17:15 | DX: L08.0 Pyoderma (principal); Z86.14 Personal history of Methicillin resistant Staphylococcus aureus infection | CPT/HCPCS: 87070; 87077; 87186; 87205 ==

== ENCOUNTER → 2024-06-21 | Outpatient (CLI) | payer MEDICARE, OTHER | LOC: LAB SHORT 12:40 → LAB 12:40 | DX: L08.0 Pyoderma (principal) | CPT/HCPCS: 87070; 87077; 87186; 87205 ==

== ENCOUNTER 2024-06-27 08:43 | Day surgery (SDC) | payer MEDICARE, OTHER ==
[2024-06-27] MEDS ORDERED: Lidocaine HCl 4% Topical Soln 50 ML BTL ONE (10:48)
== END 2024-06-27 23:11 | disposition home or self-care (01) ==
LOC: WOUND 08:43
DX: I89.0 Lymphedema, not elsewhere classified (principal); I10 Essential (primary) hypertension; F17.210 Nicotine dependence, cigarettes, uncomplicated; I83.018 Varicose veins of right lower extremity with ulcer other part of lower leg; E11.51 Type 2 diabetes mellitus with diabetic peripheral angiopathy without gangrene; I87.2 Venous insufficiency (chronic) (peripheral); L08.0 Pyoderma
CPT/HCPCS: G0463

== ENCOUNTER 2024-08-03 01:11 | Day surgery (SDC) | payer MEDICARE, OTHER | END 2024-08-03 22:43 | disposition home or self-care (01) | LOC: WOUND 01:11 | DX: I87.313 Chronic venous hypertension (idiopathic) with ulcer of bilateral lower extremity (principal); L97.812 Non-pressure chronic ulcer of other part of right lower leg with fat layer exposed; L97.822 Non-pressure chronic ulcer of other part of left lower leg with fat layer exposed; I89.0 Lymphedema, not elsewhere classified; I87.2 Venous insufficiency (chronic) (peripheral); L08.0 Pyoderma; I73.9 Peripheral vascular disease, unspecified | CPT/HCPCS: G0463 ==

== ENCOUNTER 2024-09-04 15:07 | Inpatient (IN) | payer MEDICARE, OTHER ==
[~2024-09-04] VITALS: Ht 162.6 cm; Wt 100.6 kg
[2024-09-04 15:47] LABS: BASOPHILS ABSOLUTE AUTO 0.03 K/mm3 (0.00-0.23); BASOPHILS PERCENT AUTO 0 % (0-2); EOSINOPHILS ABSOLUTE AUTO 0.01 K/mm3 (0.00-0.68); EOSINOPHILS PERCENT AUTO 0 % (0-6); Hemoglobin 12.8 g/dL (11.5-16.0); IMMATURE GRAN ABSOLUTE AUTO 0.12 K/mm3 (0.00-0.10); IMMATURE GRAN PERCENT AUTO 1 % (0-1); LYMPHOCYTES ABSOLUTE AUTO 0.67 K/mm3 (0.84-5.20); LYMPHOCYTES PERCENT AUTO 4 % (21-46); MONOCYTES ABSOLUTE AUTO 0.86 K/mm3 (0.16-1.47); MONOCYTES PERCENT AUTO 6 % (4-13); Mean Corpuscular HGB 30.4 pg (26.0-34.0); Mean Corpuscular HGB Conc 32.8 g/dL (31.5-36.5); Mean Corpuscular Volume 93 fL (80-100); Mean Platelet Volume 9.8 fL (9.1-12.4); NEUTROPHILS ABSOLUTE AUTO 13.97 K/mm3 (1.96-9.15); NEUTROPHILS PERCENT AUTO 89 % (41-73); Platelet Count 280 K/mm3 (150-400); RDW Standard Deviation 54.4 fL (35.1-46.3); Red Blood Cell Count 4.21 M/mm3 (3.80-5.20); White Blood Cell Count 15.66 K/mm3 (4.00-11.30)
[2024-09-04 16:11] LABS: Albumin, Blood 2.2 g/dL (3.4-5.0); Albumin/Globulin Ratio 0.4 (0.8-1.8); Bilirubin, Total 0.4 mg/dL (0.1-1.0); Bun/Creatinine Ratio 23.7 (12.0-20.0); Calcium, Blood 9.1 mg/dL (8.5-10.1); Creatinine, Blood 3.37 mg/dL (0.40-1.00); Globulin, Blood 5.4 g/dL (2.2-4.0); Total Protein, Blood 7.6 g/dL (6.4-8.2)
[2024-09-04] MEDS ORDERED: Acetaminophen 500 MG Tab PO ONE (16:30)
[2024-09-04] MEDS ORDERED: Morphine Sulfate 4 MG/1 ML Injection IV ONE (16:30)
[2024-09-04] MEDS ORDERED: Ondansetron 4 MG SoluTab MM ONE (16:30)
[2024-09-04] MEDS ORDERED: Vancomycin HCL 2,000 MG in NS 500 ML IV ONE (17:05)
[2024-09-04] MEDS ORDERED: NS 1,000 ML IV SCH ×4 (18:20→22:40)
[2024-09-04] MEDS ORDERED: Acetaminophen 325 MG TABLET PO PRN (18:30)
[2024-09-04] MEDS ORDERED: FLU VACC TS2024-25(6MOS UP)/PF 45 MCG/0.5 ML SYRINGE IM SCH (18:30)
[2024-09-04] MEDS ORDERED: OxyCODONE HCL 5 MG TAB PO PRN (18:30)
[2024-09-04] MEDS ORDERED: Piperacillin/Tazobactam Sod 2.25 GM in NS 50 ML IV SCH (19:00)
[2024-09-04] MEDS ORDERED: Docusate Sodium 100 MG Cap PO SCH (21:00)
[2024-09-04] MEDS ORDERED: Famotidine 20 MG Tab PO SCH (21:00)
[2024-09-04] MEDS ORDERED: Insulin Human Lispro 100 Units/ML 3ML Syringe SC SCH (21:00)
[2024-09-04] MEDS ORDERED: Sodium Bicarb 8.4% Inj 100 MEQ in Sodium Chloride 0.45% 1,000 ML IV SCH (22:55)
[2024-09-05] VITALS (39 sets, daily range): BP systolic 75–148; BP diastolic 41–107
[2024-09-05] MEDS ORDERED: FentaNYL Citrate 50 MCG/ML 2 ML Injection IV PRN (02:45)
[2024-09-05] MEDS ORDERED: FentaNYL Citrate 50 MCG/ML 2 ML Injection ONE (02:48)
[2024-09-05] MEDS ORDERED: Dextrose 5% 1,000 ML IV SCH (02:50)
[2024-09-05] MEDS ORDERED: Sodium Bicarb 8.4% Inj 150 MEQ in Dextrose 5% 1,000 ML IV SCH (02:55)
[2024-09-05] MEDS ORDERED: Albumin (Human) 25gm/100ml 100 ML IV ONE (03:45)
[2024-09-05 03:50] LABS: Hematocrit 38.2 % (33.0-51.0); Hemoglobin 12.2 g/dL (11.5-16.0); Mean Corpuscular HGB 30.5 pg (26.0-34.0); Mean Corpuscular HGB Conc 31.9 g/dL (31.5-36.5); Mean Corpuscular Volume 96 fL (80-100); NRBC ABSOLUTE 0.04 K/mm3 (0.00-0.02); NRBC Auto 0.3 /100 WBC (0.0-0.2); RDW Coefficient Variation 16.1 % (11.7-14.2); RDW Standard Deviation 57.3 fL (35.1-46.3); White Blood Cell Count 13.09 K/mm3 (4.00-11.30)
[2024-09-05 03:51] LABS: Mean Platelet Volume 10.4 fL (9.1-12.4); Platelet Count 233 K/mm3 (150-400)
[2024-09-05] MEDS ORDERED: NS 250 ML IV PRN (03:55)
[2024-09-05] MEDS ORDERED: Cefepime HCl 1,000 MG in NS 100 ML IV SCH (04:00)
[2024-09-05 04:02] LABS: Alanine Aminotransfer (ALT/SGP 21 U/L (12-78); Albumin, Blood 1.7 g/dL (3.4-5.0); Albumin/Globulin Ratio 0.4 (0.8-1.8); Alk Phos 114 U/L (50-136); Anion Gap 15 mmol/L (3-11); Aspartate Aminotrans (AST/SGOT 42 U/L (12-37); BAND PERCENT MAN 22 % (0-8); BASOPHILS PERCENT MAN 0 % (0-2); Bilirubin, Total 0.5 mg/dL (0.1-1.0); Blood Urea Nitrogen 79 mg/dL (8-24); Bun/Creatinine Ratio 25.3 (12.0-20.0); CO2, Blood 11 mmol/L (21-32); Calcium, Blood 8.2 mg/dL (8.5-10.1); Chloride, Blood 113 mmol/L (98-108); Creatinine, Blood 3.12 mg/dL (0.40-1.00); EOSINOPHILS PERCENT MAN 0 % (0-6); Globulin, Blood 4.5 g/dL (2.2-4.0); Glomerular Filtration Rate 15 (60-); Glucose, Blood 97 mg/dL (70-99); LYMPHOCYTES ABSOLUTE MAN 0.13 K/mm3 (0.84-5.20); LYMPHOCYTES PERCENT MAN 1 % (21-46); MONOCYTES ABSOLUTE MAN 0.39 K/mm3 (0.16-1.47); MONOCYTES PERCENT MAN 3 % (4-13); NEUTROPHILS ABSOLUTE MAN 12.56 K/mm3 (1.96-9.15); Potassium, Blood 5.4 mmol/L (3.5-5.5); SEG NEUTROPHILS PERCENT MAN 74 % (41-73); Sodium, Blood 134 mmol/L (136-145); TOTAL CELLS COUNTED 100; Total Protein, Blood 6.2 g/dL (6.4-8.2)
--- NOTE | 2024-09-05 04:02 | NUR ---
ARRIVAL TO ICU: RECEIVED REPORT FROM MICHAEL QUINTEROS AT 0145. PT ARRIVED TO ICU BED 10 VIA GURNEY AT 0210. SLID ACROSS TO ICU BED WITH MAX ASSIST. PT VERY PAINFUL IN LOWER EXTREMETIES AND CRYING OUT. MEDICATED WITH PRN FENTANYL WITH RELIEF STATED FROM PT. PT ALERT AND ORIENTED. ON RA WITH SPO2 HIGH 90'S. LUNGS CLEAR/DIM. PT IN SR WITH HR 90'S. SBP 90'S-130'S. MAP >65. DENIES CHEST PAIN/PRESSURE. PIVS INTACT AND PATENT TO RAC/LAC. BICARB INFUSING AT 125 ML/HR. LEVOPHED ON SB SINCE ARRIVAL TO ICU. PT HAS OOZING AND REDNESS NOTED IN LOWER EXTREMETIES. PUREWICK IN PLACE, HAS NOT YET VOIDED. NO BM YET. TOLERATING PO INTAKE. PT TAKEN TO CT BY BED FOR SCAN OF LOWER RIGHT LEG. BED LOW AND LOCKED, CALL LIGHT IN REACH.
[2024-09-05 04:40] LABS: Source, Urine Foley catheter
[2024-09-05 04:53] LABS: Bilirubin, Urine Neg (Neg); Blood, Urine Neg (Neg); Glucose Qualitative, Urine Neg (Neg); Ketones, Urine Neg (Neg); Leukocyte Esterase, Urine Neg (Neg); Nitrite, Urine Neg (Neg); Protein, Urine 2+ (Neg); Urobilinogen, Urine 1+ (Normal)
[2024-09-05] MEDS ORDERED: Piperacillin/Tazobactam Sod 3.375 GM in NS 100 ML IV SCH (05:00)
[2024-09-05 05:04] LABS: Appearance, Urine Hazy (Clear); Color, Urine Yellow (P-Yellow)
[2024-09-05 05:06] LABS: Amorphous Mod (0-Heavy); Bacteria Rare /hpf; Hyaline Casts 0-2 /lpf (0-2); Red Blood Cells, Urine Not Seen /hpf (0-2); Squamous Epithelial Cells Not Seen /hpf (Few); White Blood Cells, Urine Not Seen /hpf (0-5)
[2024-09-05] MEDS ORDERED: Heparin Sodium,Porcine 5,000 UNIT/0.5 ML SDV SC SCH (09:00)
--- NOTE | 2024-09-05 14:02 | NUR ---
WHEN PRECIOUS IS AWAKE SHE IS MOANING AND HAVING A DIFFICULT TIME GETTING POSITIONED COMFORTABLY. SHE ASKS FOR PAIN MEDS FAIRLY OFTEN, IT IS SCHEDULED FOR Q4 HOURS. THE LOWER EXTREMETIES ARE WEEPING AND EXCORIATED. THE RIGHT LEG IS MORE RED AND TAUT, GOING ALL THE WAY UP THE HIGH NEAR THE GROIN. REHMAN CATH IN USE. HERE TO EVALUATE, AGREES THAT A NON ADHERENT DRESSING TO THE POSTERIOR CALF IS NEEDED AND THE USE OF THE ANTIBIOTICS WILL BE OF MOST BENE- FIT. STATES THAT WATCHING FOR FURTHER PURPLE DISCOLORATION OF THE TOES, INCREASED REDNESS TO THE RIGHT THIGH OR OTHER INDICATION WOULD WARRANT A FURTHER STUDY.
[2024-09-05 17:25] LABS: Albumin, Blood 1.9 g/dL (3.4-5.0); Albumin/Globulin Ratio 0.5 (0.8-1.8); Bilirubin, Total 0.7 mg/dL (0.1-1.0); Bun/Creatinine Ratio 30.5 (12.0-20.0); Calcium, Blood 7.8 mg/dL (8.5-10.1); Creatinine, Blood 2.43 mg/dL (0.40-1.00); Globulin, Blood 3.8 g/dL (2.2-4.0); Potassium, Blood 4.5 mmol/L (3.5-5.5); Total Protein, Blood 5.7 g/dL (6.4-8.2)
[2024-09-05] MEDS ORDERED: Lactated Ringer's 1,000 ML IV SCH (17:40)
--- NOTE | 2024-09-05 18:32 | NUR ---
PRECIOUS HAS FALLEN ASLEEP AND IS CONTINUES TO DROP HER SATURATIONS IN THE 80S WHILE SLEEPING. AN OXYGEN MASK, NRB IS PLACED WITH SOME COUNSELING. PT DENIES USE OF A CPAP AT HOME. SATS IMPROVED WITH MASK
--- NOTE | 2024-09-05 20:46 | NUR ---
ASSUMED CARE OF PATIENT AT APPROXIMATELY 1900. REPORT RECEIVED FROM ALDAIR GARCIA. PT RESTING IN BED. CONTINOUS CARDIAC MONITORING IN PLACE SHOWING SR WITH HR OF 87. BP 116/62 AND MAP OF 78. ON 5LPM O2 VIA NRB WITH O2 SATURATION OF 100%. BREATHING LABORED. REPORTS PAIN AT 7/10 IN BLE'S. LR INFUSING AT 125 mL/HR. SEE SHIFT ASSESSMENT FOR FULL DETAILS.
[2024-09-05] MEDS ORDERED: Lactobacil 2-S.Thermo-Bifido 1 1 Cap PO SCH (21:00)
[2024-09-06 00:31] VITALS: BP 111/63
[2024-09-06 03:58] VITALS: BP 124/59
[2024-09-06 04:34] LABS: BASOPHILS ABSOLUTE AUTO 0.04 K/mm3 (0.00-0.23); BASOPHILS PERCENT AUTO 0 % (0-2); EOSINOPHILS ABSOLUTE AUTO 0.06 K/mm3 (0.00-0.68); EOSINOPHILS PERCENT AUTO 1 % (0-6); Hemoglobin 9.7 g/dL (11.5-16.0); IMMATURE GRAN ABSOLUTE AUTO 0.14 K/mm3 (0.00-0.10); IMMATURE GRAN PERCENT AUTO 1 % (0-1); LYMPHOCYTES ABSOLUTE AUTO 0.36 K/mm3 (0.84-5.20); LYMPHOCYTES PERCENT AUTO 3 % (21-46); MONOCYTES ABSOLUTE AUTO 0.54 K/mm3 (0.16-1.47); MONOCYTES PERCENT AUTO 5 % (4-13); Mean Corpuscular HGB 30.5 pg (26.0-34.0); Mean Corpuscular HGB Conc 33.4 g/dL (31.5-36.5); Mean Platelet Volume 10.1 fL (9.1-12.4); NEUTROPHILS ABSOLUTE AUTO 9.95 K/mm3 (1.96-9.15); NEUTROPHILS PERCENT AUTO 90 % (41-73); NRBC ABSOLUTE 0.02 K/mm3 (0.00-0.02); NRBC Auto 0.2 /100 WBC (0.0-0.2); Platelet Count 240 K/mm3 (150-400); RDW Coefficient Variation 16.1 % (11.7-14.2); RDW Standard Deviation 53.1 fL (35.1-46.3); Red Blood Cell Count 3.18 M/mm3 (3.80-5.20); White Blood Cell Count 11.09 K/mm3 (4.00-11.30)
[2024-09-06 04:44] LABS: Mean Corpuscular Volume 91 fL (80-100)
[2024-09-06 05:13] LABS: Alanine Aminotransfer (ALT/SGP 31 U/L (12-78); Albumin, Blood 1.7 g/dL (3.4-5.0); Albumin/Globulin Ratio 0.4 (0.8-1.8); Alk Phos 134 U/L (50-136); Anion Gap 10 mmol/L (3-11); Aspartate Aminotrans (AST/SGOT 61 U/L (12-37); Bilirubin, Total 0.5 mg/dL (0.1-1.0); Blood Urea Nitrogen 66 mg/dL (8-24); CO2, Blood 24 mmol/L (21-32); Calcium, Blood 7.9 mg/dL (8.5-10.1); Chloride, Blood 107 mmol/L (98-108); Creatinine, Blood 2.06 mg/dL (0.40-1.00); Globulin, Blood 4.2 g/dL (2.2-4.0); Glomerular Filtration Rate 25 (60-); Glucose, Blood 128 mg/dL (70-99); Magnesium, Blood 1.8 mg/dL (1.6-2.4); Phosphorus, Blood 2.8 mg/dL (2.5-4.9); Potassium, Blood 4.6 mmol/L (3.5-5.5); Sodium, Blood 136 mmol/L (136-145); Total Protein, Blood 5.9 g/dL (6.4-8.2); Vancomycin, Random 11.5 ug/mL
[2024-09-06 08:50] VITALS: BP 114/76
[2024-09-06] MEDS ORDERED: Vancomycin HCL 1,750 MG in NS 500 ML IV ONE (09:00)
[2024-09-06 09:30] LABS: Percent Saturation 13.9 % (15.0-50.0)
[2024-09-06] MEDS ORDERED: Docusate Sodium 100 MG Cap PO PRN (12:08)
[2024-09-06 15:13] VITALS: BP 143/62
--- NOTE | 2024-09-06 17:56 | NUR ---
SUMMARY PT A/O TO PERSON, PLACE, AND SITUATION. HAS PAIN IN LE'S WITH MOVEMENT AND DRESSING CHANGES. CLEANSED WOUND, APPLIED PETROLEUM GAUZE AND ABD PAD, THEN SECURED WITH KERLEX. PT IS IN EXCRUTIATING PAIN WITH DRESSING CHANGES. ON TOP OF WOUNDS PT HAS EXCORIATION TO PERIAREA. FENTANYL GIVEN. INCONTINENT OF LOOSE BM TODAY. TOLERATING MEALS. NO SIGN OF DISTRESS.
[2024-09-06 20:11] VITALS: BP 127/61
[2024-09-07 04:01] VITALS: BP 140/69
[2024-09-07 04:52] LABS: BASOPHILS ABSOLUTE AUTO 0.03 K/mm3 (0.00-0.23); BASOPHILS PERCENT AUTO 0 % (0-2); EOSINOPHILS ABSOLUTE AUTO 0.09 K/mm3 (0.00-0.68); EOSINOPHILS PERCENT AUTO 1 % (0-6); Hematocrit 29.9 % (33.0-51.0); Hemoglobin 9.7 g/dL (11.5-16.0); IMMATURE GRAN ABSOLUTE AUTO 0.26 K/mm3 (0.00-0.10); IMMATURE GRAN PERCENT AUTO 3 % (0-1); LYMPHOCYTES ABSOLUTE AUTO 0.37 K/mm3 (0.84-5.20); LYMPHOCYTES PERCENT AUTO 5 % (21-46); MONOCYTES ABSOLUTE AUTO 0.46 K/mm3 (0.16-1.47); MONOCYTES PERCENT AUTO 6 % (4-13); Mean Corpuscular HGB 29.9 pg (26.0-34.0); Mean Corpuscular HGB Conc 32.4 g/dL (31.5-36.5); Mean Corpuscular Volume 92 fL (80-100); Mean Platelet Volume 9.7 fL (9.1-12.4); NEUTROPHILS ABSOLUTE AUTO 6.86 K/mm3 (1.96-9.15); NEUTROPHILS PERCENT AUTO 85 % (41-73); Platelet Count 255 K/mm3 (150-400); RDW Coefficient Variation 16.3 % (11.7-14.2); RDW Standard Deviation 55.5 fL (35.1-46.3); Red Blood Cell Count 3.24 M/mm3 (3.80-5.20); White Blood Cell Count 8.07 K/mm3 (4.00-11.30)
--- NOTE | 2024-09-07 04:57 | NUR ---
SHIFT SUMMARY ASSUMED CARE OF PT AT 1900. PT A&O4 AND COOPERATIVE IN CARE. VSS AND PT REMAINED ON 3-5LNC T/O THE NIGHT. PICC LINE DRESSING CHANGE COMPLETED AND REHMAN CATH REMAINED CLEAN, BELOW BLADDER AND OFF FLOOR. TIRE TRIMMER HAND REPORTED A SHORT RUN OF NONSUSTAINING SVT FOR 7 SECONDS AT 0450, NO SYMPTOMS REPORTED. PT BLE DRESSINGS REMAINED CLEAN AND DRY AND PT ABLE TO HELP WITH BED TURNS. BED IN LOWEST POSITION AND CALL LIGHT WITHIN REACH.
[2024-09-07 05:31] LABS: Albumin, Blood 1.7 g/dL (3.4-5.0); Albumin/Globulin Ratio 0.4 (0.8-1.8); Bilirubin, Total 0.4 mg/dL (0.1-1.0); Bun/Creatinine Ratio 29.7 (12.0-20.0); Calcium, Blood 8.5 mg/dL (8.5-10.1); Creatinine, Blood 1.45 mg/dL (0.40-1.00); Globulin, Blood 4.2 g/dL (2.2-4.0); Potassium, Blood 4.4 mmol/L (3.5-5.5); Total Protein, Blood 5.9 g/dL (6.4-8.2)
[2024-09-07] MEDS ORDERED: Famotidine 20 MG Tab PO SCH (09:15)
[2024-09-07 09:29] VITALS: BP 126/53
--- NOTE | 2024-09-07 10:30 | NUR ---
am note this rn assumed care at 0700. vital signs stable. spo2 >90% on 5l nc. patient is alert and oriented x4. forgetful at times. patient uses call light appropriately to make needs known. denies chest pain/pressure or shortness of breath. reports pain in bilateral lower extremities and medicated per emar. patient has joshi in place draining with gravity, yellow coloration. patient has bilateral cellulitis in lower extremities. dressings change 09/07/24 am. pictures in chart. patient needs to be medicated before dressing changes to help with pain. bed bath done and linen change. am care done. see shift assessment for further detials. plan of care is up to date at this time. spoke with md winter and patient switched to medical status no tele.
[2024-09-07] MEDS ORDERED: GABA300 PO (10:39)
[2024-09-07] MEDS ORDERED: HYDCHL25 PO (10:39)
--- NOTE | 2024-09-07 13:20 | NUR ---
REPORT TO MEDICAL FLOOR RN this rn gave report to medical floor rn hyun. patient left with all belongings and in no distress
[2024-09-07 15:06] VITALS: BP 139/68
--- NOTE | 2024-09-07 16:52 | NUR ---
SHIFT SUMMARY MS ANGEL WAS TRANSFERED TO MEDICAL UNIT FROM PCU AT 1335HRS ON HER BED. SHE IS AWAKE, ORIENTATED, FAMILY AT BEDSIDE. 2 PERSON ASSISTANCE TO REPOSITION Q2HRS AND PROP WITH PILLOWS. BLE DRESSING C,D,I AND FEET ELEVATED ON PILLOWS. ON REGULAR DIET WITH ACCUCHECKS AC/HS - NO COVERAGE REQUIRED. REHMAN CATHETER IN PLACE DRAINING TO BEDSIDE DRAINAGE BAD. SOME PUFFINESS AND REDNESS TO LABIA AND EXCORIATION/REDNESS TO RECTAL AREA. CLEANSED AND ZINC CREAM APPLIED. SHE WAS GIVEN IV FENTANYL FOR LEG PAIN WHICH DOES NOT SEEM TO BE LASTING PAIN RELIEF. NO ORAL PAIN MEDS ORDERED. CALL PLACED TO DR GALVEZ. PT RESTING ON 3L OXYGEN NC, SATS IN 90S ON INTERMITTANT CHECKS. BED LOW, CALL LIGHT IN REACH.
[2024-09-07] MEDS ORDERED: OxyCODONE HCL 5 MG TAB PO PRN (17:30)
[2024-09-07 19:41] VITALS: BP 123/67
[2024-09-07 22:07] LABS: Vancomycin, Trough 10.3 ug/mL (5.0-10.0)
[2024-09-07] MEDS ORDERED: Vancomycin HCL 1,500 MG in NS 250 ML IV ONE (22:20)
[2024-09-08 03:34] VITALS: BP 131/68
--- NOTE | 2024-09-08 06:11 | NUR ---
Patient alert and oriented, VSS, resting in bed overnight. PRN pain medication given x3, see eMAR for detail. Wound dressing to RLE changed due to saturation, patient tolerated poorly with pain medications on board. Gordon catheter in place, draining appropriately. Patient incontinent of bowel once in bed overnight. Patient being turned Q2 hours for pressure injury prevention, Mepelex placed to coccyx for PIP.
[2024-09-08 06:38] LABS: Hemoglobin 9.7 g/dL (11.5-16.0); Mean Corpuscular HGB 30.1 pg (26.0-34.0); Mean Corpuscular HGB Conc 32.3 g/dL (31.5-36.5); Mean Corpuscular Volume 93 fL (80-100); Mean Platelet Volume 9.8 fL (9.1-12.4); Platelet Count 289 K/mm3 (150-400); RDW Coefficient Variation 16.4 % (11.7-14.2); Red Blood Cell Count 3.22 M/mm3 (3.80-5.20)
[2024-09-08 07:07] LABS: Albumin, Blood 1.5 g/dL (3.4-5.0); Albumin/Globulin Ratio 0.3 (0.8-1.8); Bilirubin, Total 0.2 mg/dL (0.1-1.0); Bun/Creatinine Ratio 23.5 (12.0-20.0); Calcium, Blood 8.1 mg/dL (8.5-10.1); Creatinine, Blood 1.36 mg/dL (0.40-1.00); Globulin, Blood 4.3 g/dL (2.2-4.0); Potassium, Blood 4.4 mmol/L (3.5-5.5); Total Protein, Blood 5.8 g/dL (6.4-8.2)
[2024-09-08 07:27] VITALS: BP 111/57
[2024-09-08] MEDS ORDERED: Albuterol 2.5 MG/3 ML VIAL INH PRN (08:50)
[2024-09-08 08:53] LABS: BAND PERCENT MAN 3 % (0-8); BASOPHILS PERCENT MAN 0 % (0-2); EOSINOPHILS PERCENT MAN 0 % (0-6); LYMPHOCYTES ABSOLUTE MAN 0.32 K/mm3 (0.84-5.20); LYMPHOCYTES PERCENT MAN 4 % (21-46); METAMYELOCYTE ABSOLUTE MAN 0.16 K/mm3 (0.00-0.00); METAMYELOCYTE PERCENT MAN 2 % (0-0); MONOCYTES ABSOLUTE MAN 0.24 K/mm3 (0.16-1.47); MONOCYTES PERCENT MAN 3 % (4-13); MYELOCYTE ABSOLUTE MAN 0.24 K/mm3 (0.00-0.00); MYELOCYTE PERCENT MAN 3 % (0-0); NEUTROPHILS ABSOLUTE MAN 7.04 K/mm3 (1.96-9.15); SEG NEUTROPHILS PERCENT MAN 85 % (41-73); TOTAL CELLS COUNTED 100
[2024-09-08 15:42] VITALS: BP 131/60
--- NOTE | 2024-09-08 15:50 | NUR ---
CALLED PHYSICIAN D/T PT HAS NOT VOIDED SINCE REHMAN CATH WAS REMOVED AROUND 1100 THIS SHIFT. WENT AHEAD AND BLADDER SCANNED PT, T NOTED TO HAVE 287ML IN BLADDER CALLED PHYSICIAN FOR ORDER LEFT VM CURRENTLY AWAITING CALL BACK.
--- NOTE | 2024-09-08 18:05 | NUR ---
SHIFT SUMMARY PT IS A&O X4. PT REMAINS BEDREST AND REPOSTIONED Q2HR. REHMAN WAS DC THIS SHIFT AT AROUND 1100. CHIEF [employer]UV[employer] OFFICER HOSPITALIST CALLED D/T NO VOID AT 1700. UPON GOING IN TO DO A BLADDER SCAN PT NOTED TO VOID. POST VOID BLADDER SCAN WAS 300. ORDER RECEIVED TO STRAIGHT CATH PT IF POST VOID WAS 350 OR GREATER. DSG CHANGED TO BLE DONE THIS SHIFT. PT TOLERATED WELL. PT NOTED TO BE INCONT OF BOWEL X3 THIS SHIFT BM NOTED TO BE SOFT.
[2024-09-08 19:57] VITALS: BP 172/66
[2024-09-08 20:02] VITALS: BP 177/81
[2024-09-08 21:13] LABS: Vancomycin, Random 13.8 ug/mL
[2024-09-08] MEDS ORDERED: Vancomycin HCL 1,500 MG in NS 250 ML IV SCH (22:22)
[2024-09-09 04:53] VITALS: BP 110/58
[2024-09-09 07:46] VITALS: BP 143/57
--- NOTE | 2024-09-09 09:00 | NUR ---
Pt laying in bed eating breakfast, watching tv, a/ox4, pleasant and cooperative with care, follows commands well, denies pain, lungs are clear in upper ho, dim with exp wheezing in bases, resp even and unlabored, no cough noted at this time, currently on 4 liters 02 via n/c, hrr, tele in place running sr per monitor, see strip, edema noted to b/l le, cap refill <3 sec, vs stable, afebrile, picc line to heber site is clear and patent, btx4, abd flat soft nontender, voids via brief at this time, skin has dressings to b/l le, no drainage noted, is bed bound, moves upper ext well, tee, call light in reach.
[2024-09-09 12:20] LABS: BASOPHILS ABSOLUTE AUTO 0.06 K/mm3 (0.00-0.23); BASOPHILS PERCENT AUTO 1 % (0-2); EOSINOPHILS ABSOLUTE AUTO 0.38 K/mm3 (0.00-0.68); EOSINOPHILS PERCENT AUTO 4 % (0-6); Hematocrit 32.8 % (33.0-51.0); Hemoglobin 10.4 g/dL (11.5-16.0); IMMATURE GRAN ABSOLUTE AUTO 0.75 K/mm3 (0.00-0.10); IMMATURE GRAN PERCENT AUTO 8 % (0-1); LYMPHOCYTES ABSOLUTE AUTO 0.63 K/mm3 (0.84-5.20); LYMPHOCYTES PERCENT AUTO 7 % (21-46); MONOCYTES ABSOLUTE AUTO 0.64 K/mm3 (0.16-1.47); MONOCYTES PERCENT AUTO 7 % (4-13); Mean Corpuscular HGB 29.9 pg (26.0-34.0); Mean Corpuscular HGB Conc 31.7 g/dL (31.5-36.5); Mean Corpuscular Volume 94 fL (80-100); Mean Platelet Volume 9.7 fL (9.1-12.4); NEUTROPHILS PERCENT AUTO 74 % (41-73); Platelet Count 335 K/mm3 (150-400); RDW Coefficient Variation 16.3 % (11.7-14.2); RDW Standard Deviation 56.5 fL (35.1-46.3); Red Blood Cell Count 3.48 M/mm3 (3.80-5.20); White Blood Cell Count 9.46 K/mm3 (4.00-11.30)
[2024-09-09 12:40] LABS: Bun/Creatinine Ratio 21.2 (12.0-20.0); Calcium, Blood 7.8 mg/dL (8.5-10.1); Creatinine, Blood 1.13 mg/dL (0.40-1.00); Potassium, Blood 4.5 mmol/L (3.5-5.5)
[2024-09-09 15:09] VITALS: BP 120/60
--- NOTE | 2024-09-09 18:00 | NUR ---
pt had a bladder scan today, there was no urine in bladder, having loose stools, sleeps when left undisturbed, speech did an eval this am, no acute changes this shift. call light in reach.
[2024-09-09 19:35] VITALS: BP 152/89
--- NOTE | 2024-09-10 00:50 | NUR ---
2130- DRESSING CHANGE W/ PETROLEUM GAUZE, ABD PAD, KERLIX AND FRANKY WRAP. PT TOLERATED POORLY. PT RLE IS MORE PAINFUL THAN LEFT. PT MEDICATED FOR PAIN.
--- NOTE | 2024-09-10 03:41 | NUR ---
SUMMARY- PT DRESSINGS WERE CHANGED. PT HAS BEEN TREATED FOR PAIN WITH RELIEF. PT HAS BEEN ABLE TO SLEEP SOME. PT REMAINS ON O2 VIA NC. PT HAS BEEN REPOSITIONED TOLERATED. PT BRIEF CHANGED NEEDED. PT CURRENTLY RESTING QUIETLY. CALL LIGHT IN REACH AND BED ALARM ON.
[2024-09-10 04:07] VITALS: BP 148/60
[2024-09-10 07:34] VITALS: BP 141/58
[2024-09-10 10:29] LABS: Bun/Creatinine Ratio 17.4 (12.0-20.0); Calcium, Blood 8.1 mg/dL (8.5-10.1); Creatinine, Blood 1.09 mg/dL (0.40-1.00); Potassium, Blood 4.4 mmol/L (3.5-5.5)
[2024-09-10] MEDS ORDERED: FentaNYL Citrate 50 MCG/ML 2 ML Injection IV PRN (11:00)
[2024-09-10] MEDS ORDERED: Furosemide 10 MG / ML 2ML Vial IV SCH (15:00)
[2024-09-10 15:09] VITALS: BP 155/75
--- NOTE | 2024-09-10 17:34 | NUR ---
SHIFT SUMMARY: PATIENT A/OX3, FORGETFUL AT TIMES, BUT EASILY REDIRECTABLE. PATIENT MADES GRUNTING SOUNDS WHEN AWAKE ON/OFF T/O THE DAY. THIS RN ASKED PATIENT OF WHY SHE MADES THIS SOUNDS, PATIENT STATED "THIS IS NOT NEW IT'S NORMAL FOR ME I'M ALWAYS SOUND LIKE THIS." PATIENT DENIES SOB, O2 TITRATED T/O THE DAY, CURRENTLY ON 1L SATTING 90-94%. PATIENT HAS DEPENDENT EDEMA TO HIP, PLUS 2 TO BLE'S/FEET. PATIENT RECEIVED IV LASIX/SCHEDULED MEDS PER EMAR. DRESSING CHANGED TO BLE'S. PATIENT HAS PUREWICK AND ATTENDS IN PLACED FOR URGENCY/INCONTINENT VOID AND 1 BM THIS SHIFT. PATIENT REPOSITIONED AND BLE'S ELEVATED ON PILLOWS T/O SHIFT. VITAL SIGNS REVIEWED. CALL LIGHT IN REACH.
[2024-09-10 21:37] LABS: Vancomycin, Trough 16.2 ug/mL (5.0-10.0)
[2024-09-11 01:53] VITALS: BP 129/61
[2024-09-11 07:32] VITALS: BP 138/65
[2024-09-11 08:37] LABS: BASOPHILS ABSOLUTE AUTO 0.05 K/mm3 (0.00-0.23); BASOPHILS PERCENT AUTO 0 % (0-2); EOSINOPHILS ABSOLUTE AUTO 0.37 K/mm3 (0.00-0.68); EOSINOPHILS PERCENT AUTO 3 % (0-6); Hematocrit 32.5 % (33.0-51.0); Hemoglobin 10.7 g/dL (11.5-16.0); IMMATURE GRAN ABSOLUTE AUTO 0.84 K/mm3 (0.00-0.10); IMMATURE GRAN PERCENT AUTO 6 % (0-1); LYMPHOCYTES ABSOLUTE AUTO 0.76 K/mm3 (0.84-5.20); LYMPHOCYTES PERCENT AUTO 5 % (21-46); MONOCYTES ABSOLUTE AUTO 0.39 K/mm3 (0.16-1.47); MONOCYTES PERCENT AUTO 3 % (4-13); Mean Corpuscular HGB 30.7 pg (26.0-34.0); Mean Corpuscular HGB Conc 32.9 g/dL (31.5-36.5); Mean Corpuscular Volume 93 fL (80-100); Mean Platelet Volume 9.7 fL (9.1-12.4); NEUTROPHILS ABSOLUTE AUTO 12.26 K/mm3 (1.96-9.15); NEUTROPHILS PERCENT AUTO 84 % (41-73); Platelet Count 405 K/mm3 (150-400); RDW Coefficient Variation 16.1 % (11.7-14.2); RDW Standard Deviation 55.4 fL (35.1-46.3); Red Blood Cell Count 3.48 M/mm3 (3.80-5.20); White Blood Cell Count 14.67 K/mm3 (4.00-11.30)
[2024-09-11 09:02] LABS: Bun/Creatinine Ratio 16.4 (12.0-20.0); Calcium, Blood 8.1 mg/dL (8.5-10.1); Creatinine, Blood 1.28 mg/dL (0.40-1.00); Potassium, Blood 4.2 mmol/L (3.5-5.5)
[2024-09-11] MEDS ORDERED: Miconazole Nitrate 28 GM CREAM..G. TOP SCH (11:40)
[2024-09-11] MEDS ORDERED: OxyCODONE HCL 5 MG TAB PO PRN (11:40)
[2024-09-11 15:40] VITALS: BP 144/68
[2024-09-11] MEDS ORDERED: Furosemide 10 MG / ML 2ML Vial IV SCH (16:00)
[2024-09-11] MEDS ORDERED: Miconazole Nitrate 2% 85 GM PWD TOP SCH (16:00)
[2024-09-11] MEDS ORDERED: Albumin (Human) 25gm/100ml 100 ML IV SCH (16:02)
--- NOTE | 2024-09-11 18:21 | NUR ---
SHIFT SUMMARY: PT ALERT&OX4 THROUGHOUT SHIFT. MAKES NEEDS KNOWN TO STAFF. IV ABX AND LASIX CONTINUES. PT HAS A PUREWICK IN PLACE AND IS INCONTINENT OF BLOWEL. WOUNDS TO BLE WERE REDRESSED PER PROVIDER ORDERS. NONADHERANT DRESSING WITH A LOOSE WRAP PER DR GENAO. PT REPORTS SOB THROUGHOUT THE SHIFT WHICH IS NOT SEW SINCE ARRIVAL AND DENIES ANY CP, PRESSURE OR TIGHTNESS. NO SIGNIFCANT EVENTS HAPPENED DURING THIS SHIFT. WILL CONTINUE TO CARE FOR PT TILL END OF SHIFT.
[2024-09-11 20:01] VITALS: BP 123/66
[2024-09-11] MEDS ORDERED: Meropenem 1,000 MG in NS 100 ML IV SCH (21:00)
[2024-09-12 05:10] VITALS: BP 103/60
[2024-09-12 05:36] LABS: Hemoglobin 9.5 g/dL (11.5-16.0); Mean Corpuscular HGB 29.8 pg (26.0-34.0); Mean Corpuscular HGB Conc 31.7 g/dL (31.5-36.5); Mean Corpuscular Volume 94 fL (80-100); Mean Platelet Volume 9.8 fL (9.1-12.4); Platelet Count 373 K/mm3 (150-400); RDW Standard Deviation 55.6 fL (35.1-46.3); Red Blood Cell Count 3.19 M/mm3 (3.80-5.20); White Blood Cell Count 12.13 K/mm3 (4.00-11.30)
[2024-09-12 05:42] LABS: Bun/Creatinine Ratio 17.8 (12.0-20.0); Creatinine, Blood 1.46 mg/dL (0.40-1.00); Potassium, Blood 4.2 mmol/L (3.5-5.5)
--- NOTE | 2024-09-12 05:55 | NUR ---
SHIFT SUMMARY PT A&OX4 AND ANSWERS QUESTIONS APPROPRIATELY. PT RECEIVED SCHEDULED AND PRN MEDICATIONS PER EMAR. PT VSS, NO COMPLAINTS OF CP/PRESSURE OR SOB. PT SPENT MOST OF SHIFT RESTING IN BED WITH EYES CLOSED AND RESPIRATIONS EVEN AND UNLABORED. NO ACUTE EVENTS AT THIS TIME. PT LEFT IN A POSITION OF SAFETY AND COMFORT WITH PROPER FALL PRECAUTIONS IN PLACE. PT REPOSITIONED Q2 HRS. CALL LIGHT IN REACH.
[2024-09-12 06:20] LABS: BAND PERCENT MAN 10 % (0-8); BASOPHILS PERCENT MAN 0 % (0-2); EOSINOPHILS ABSOLUTE MAN 0.36 K/mm3 (0.00-0.68); EOSINOPHILS PERCENT MAN 3 % (0-6); LYMPHOCYTES ABSOLUTE MAN 0.97 K/mm3 (0.84-5.20); LYMPHOCYTES PERCENT MAN 8 % (21-46); METAMYELOCYTE ABSOLUTE MAN 0.12 K/mm3 (0.00-0.00); METAMYELOCYTE PERCENT MAN 1 % (0-0); MONOCYTES ABSOLUTE MAN 0.48 K/mm3 (0.16-1.47); MONOCYTES PERCENT MAN 4 % (4-13); NEUTROPHILS ABSOLUTE MAN 10.18 K/mm3 (1.96-9.15); SEG NEUTROPHILS PERCENT MAN 74 % (41-73); TOTAL CELLS COUNTED 100
[2024-09-12 07:31] VITALS: BP 120/60
[2024-09-12] MEDS ORDERED: Alteplase Recombinant 2 MG / Vial IV ONE (15:50)
[2024-09-12 18:02] VITALS: BP 130/68
--- NOTE | 2024-09-12 18:34 | NUR ---
SHIFT SUMMARY PT ALERT, ORIENTED X4; COOPERATIVE WITH CARE. PT REPORTS PAIN TO BLE, MEDICATED THIS EVENING AFTER BEDBATH AND WOUND DRESSING CHANGE. WOUND DRESSING DRIED ON TO RLE, ATTEMPTED TO SOAK OFF DRESSING WITH STERILE WATER, PT JERKED LEG WHEN RN WAS TRYING TO PEEL OFF DRESSING, WOUND STARTED BLEEDING, HELD PRESSURE UNTIL IT STOPPED, PLACED PETROLEUM GAUZE TO SITE, NONADHERENT DRESSING AND LIGHTLY WRAPPED TO KEEP IN PLACE, NOTIFIED DR NEW ORDERS ENTERED FOR DRESSING CHANGES. PT DENIES CHEST PAIN/PRESSURE, SOB, NAUSEA, DIZZINESS AND NUMB/TINGLING. HR AND BP STABLE. OTHER VSS. ABD MOD, FIRM, +BT. NO OTHER ACUTE CHANGES NOTED. WILL CONTINUE TO MONITOR.
[2024-09-12] MEDS ORDERED: LevoFLOXacin 500 MG Tab PO SCH (21:00)
[2024-09-12 21:24] VITALS: BP 122/51
--- NOTE | 2024-09-12 23:58 | NUR ---
0000- DRSSING CHANGE TO RLE. DRESSING SOILED. EXUDRY W/ PETROLEUM GAUZE APPLIED LOOSELY WITH SOFT PADDING. PT TX FOR PAIN PER JAN.
[2024-09-13 05:03] VITALS: BP 117/63
[2024-09-13 05:37] LABS: Mean Corpuscular HGB 30.4 pg (26.0-34.0); Mean Corpuscular HGB Conc 32.1 g/dL (31.5-36.5); Mean Corpuscular Volume 95 fL (80-100); Mean Platelet Volume 9.4 fL (9.1-12.4); Platelet Count 396 K/mm3 (150-400); RDW Coefficient Variation 15.9 % (11.7-14.2); RDW Standard Deviation 54.7 fL (35.1-46.3); Red Blood Cell Count 2.96 M/mm3 (3.80-5.20); White Blood Cell Count 9.07 K/mm3 (4.00-11.30)
[2024-09-13 06:10] LABS: BAND PERCENT MAN 16 % (0-8); BASOPHILS PERCENT MAN 0 % (0-2); EOSINOPHILS ABSOLUTE MAN 0.45 K/mm3 (0.00-0.68); EOSINOPHILS PERCENT MAN 5 % (0-6); LYMPHOCYTES ABSOLUTE MAN 0.72 K/mm3 (0.84-5.20); LYMPHOCYTES PERCENT MAN 8 % (21-46); METAMYELOCYTE ABSOLUTE MAN 0.09 K/mm3 (0.00-0.00); METAMYELOCYTE PERCENT MAN 1 % (0-0); MONOCYTES ABSOLUTE MAN 0.45 K/mm3 (0.16-1.47); MONOCYTES PERCENT MAN 5 % (4-13); MYELOCYTE ABSOLUTE MAN 0.09 K/mm3 (0.00-0.00); MYELOCYTE PERCENT MAN 1 % (0-0); NEUTROPHILS ABSOLUTE MAN 7.25 K/mm3 (1.96-9.15); SEG NEUTROPHILS PERCENT MAN 64 % (41-73); TOTAL CELLS COUNTED 100
[2024-09-13 06:11] LABS: Bun/Creatinine Ratio 19.8 (12.0-20.0); Calcium, Blood 8.2 mg/dL (8.5-10.1); Creatinine, Blood 1.31 mg/dL (0.40-1.00); Potassium, Blood 4.2 mmol/L (3.5-5.5)
[2024-09-13 15:33] LABS: SARS-Cov-2 (COVID-19) PCR, MMC NEGATIVE (NEGATIVE)
--- NOTE | 2024-09-13 18:16 | NUR ---
SHIFT SUMMARY PATIENT ALERT, EASILY IRRITABLE BUT COOPERATIVE. WOUND CARE PROVIDED, PATIENT NOTED TO HAVE BLISTERING AREA ON L SIDE OF COCCYX. DR GALVEZ CALLED, PICTURE TAKEN OF BLISTERS, VIRAL CULTURAL DONE, PATIENT STARTED ON ANTIVIRALS. PATIENT TO MOVE TO [place] ROOM WHEN AVAILABLE. PATIENT PLANNING TO GO TO REHAB WHEN ROOM AVAILABLE. EDUCATION PROVIDED TO PATIENT RELATED TO LOW SODIUM DIET, LIMITING FLUIDS, SKIN CARE, AND HIGH PROTIEN WELL BALANCED DIET FOR WOUND HEALING. PATIENT RESPONDING TO DIURETICS WELL.
[2024-09-13 19:35] VITALS: BP 142/69
[2024-09-13] MEDS ORDERED: ValACYClovir HCL 500 MG Tab PO SCH (21:00)
[2024-09-14 03:48] VITALS: BP 129/59
--- NOTE | 2024-09-14 04:21 | NUR ---
SHIFT SUMMARY ADMITTED FOR BLE CELLULITIS/SEPSIS. FULL CODE. AIRB[place]NE PRECAUTIONS FOR RULE OUT SHINGLES. SHE IS A&O X4, ON 2 LPM O2. DRESSINGS ON BLE CHANGED DAILY. PICC LINE IN RUE. ON REGULAR DIET. ST/OT/PT ARE SCHEDULED. PALLIATIVE CARE IS CONSULTED. SHE IS BEDBOUND SO FAR. WE ARE DIURESING HER. ALBUMIN IS INFUSION GIVEN ON PREVIOUS SHIFT. PLAN IS FOR DC TO SNF FOR REHAB AND WOUND CARE, ALTHOUGH THIS MIGHT BE DELAYED DUE TO SHINGLES. SHE IS INCONTINENT. SURGICAL CONSULT IS DR. PASTRANA.
[2024-09-14 07:32] VITALS: BP 102/51
[2024-09-14] MEDS ORDERED: VALA500 PO (12:02)
[2024-09-14] MEDS ORDERED: FURO20 PO (12:20)
[2024-09-14] MEDS ORDERED: FAMO20 PO (12:20)
[2024-09-14] MEDS ORDERED: LEVFLO500 PO (12:21)
[2024-09-14] MEDS ORDERED: MICONAZOLE NITR85 GM TOP (12:23)
[2024-09-14 15:19] VITALS: BP 140/64
[2024-09-14 19:47] VITALS: BP 125/68
--- NOTE | 2024-09-14 20:11 | NUR ---
END OF SHIFT SUMMARY: A&Ox4. PLEASANT AND COOPERATIVE WITH CARE. CALLS APPROPRIATELY AND IS ABLE TO ADVOCATE NEEDS EFFECTIVELY. INDEPENDENT TO BSC; CONTINENT/INCONTINENT. PICC RICARDO RUNNING TKO. DIURETICS DECREASED. DC ORDERS FOR SNF ENTERED. AWAITING SHINGLES R/O. NO NEW EVENTS THIS SHIFT. VSS. BED IN LOWEST POSITION. CALL LIGHT WITHIN REACH. ALL NEEDS MET. REPORT TO ONCOMING NURSE.
--- NOTE | 2024-09-15 05:31 | NUR ---
SHIFT SUMMARY PT A&Ox4 AND COOPERATIVE OF CARE. NO ACUTE CHANGES. PT INC AND BREIF CHANGED PRN. TURNS INDEPENDENTLY. RT AT BEDSIDE AT START OF SHIFT. PT REMAINS ON 6L OF OXYGEN. EXPIRATORY WEEZES HEARD T/O LUNGS. PT CALLS APPROPRIATLY. VSS. BED IN LOWEST POSITION AND CALL LIGHT IN REACH.
[2024-09-15 05:42] VITALS: BP 131/65
[2024-09-15 08:12] VITALS: BP 109/55
[2024-09-15 13:30] LABS: BASOPHILS ABSOLUTE AUTO 0.06 K/mm3 (0.00-0.23); BASOPHILS PERCENT AUTO 1 % (0-2); EOSINOPHILS ABSOLUTE AUTO 0.17 K/mm3 (0.00-0.68); EOSINOPHILS PERCENT AUTO 2 % (0-6); Hematocrit 30.3 % (33.0-51.0); Hemoglobin 9.7 g/dL (11.5-16.0); IMMATURE GRAN ABSOLUTE AUTO 0.18 K/mm3 (0.00-0.10); IMMATURE GRAN PERCENT AUTO 2 % (0-1); LYMPHOCYTES ABSOLUTE AUTO 1.25 K/mm3 (0.84-5.20); LYMPHOCYTES PERCENT AUTO 15 % (21-46); MONOCYTES ABSOLUTE AUTO 0.51 K/mm3 (0.16-1.47); MONOCYTES PERCENT AUTO 6 % (4-13); Mean Corpuscular HGB 30.5 pg (26.0-34.0); Mean Corpuscular Volume 95 fL (80-100); Mean Platelet Volume 8.9 fL (9.1-12.4); NEUTROPHILS ABSOLUTE AUTO 6.09 K/mm3 (1.96-9.15); NEUTROPHILS PERCENT AUTO 74 % (41-73); Platelet Count 470 K/mm3 (150-400); RDW Coefficient Variation 16.1 % (11.7-14.2); RDW Standard Deviation 56.6 fL (35.1-46.3); Red Blood Cell Count 3.18 M/mm3 (3.80-5.20); White Blood Cell Count 8.26 K/mm3 (4.00-11.30)
[2024-09-15 13:49] LABS: Albumin, Blood 3.5 g/dL (3.4-5.0); Albumin/Globulin Ratio 0.9 (0.8-1.8); Bilirubin, Total 0.4 mg/dL (0.1-1.0); Bun/Creatinine Ratio 19.7 (12.0-20.0); Calcium, Blood 9.2 mg/dL (8.5-10.1); Creatinine, Blood 1.37 mg/dL (0.40-1.00); Globulin, Blood 3.9 g/dL (2.2-4.0); Potassium, Blood 4.2 mmol/L (3.5-5.5); Total Protein, Blood 7.4 g/dL (6.4-8.2)
--- NOTE | 2024-09-15 17:39 | NUR ---
SHIFT SUMMARY: PATIENT A/OX3, IRRITABLE AT TIMES AND COOPERATIVE c CARE. PATIENT DENIES CP/PRESSURE, N/V AND DIZZINESS. DRESSING CHANGED TO BLE'S PER ORDER. PATIENT HAS GOOD APPETITE, INCONTINENT OF BOWEL/BLADDER, ATTENDS CHANGED PRN AND REPOSITIONED T/O SHIFT. PATIENT ON AIRBORNE PRECAUTION TO ROLL OUT SHINGLES, AWAITING FOR ANTIBODIES LAB RESULT. VITAL SIGNS REVIEWED. BED ALARM ON FOR SAFETY. CALL LIGHT IN REACH.
[2024-09-15 18:48] VITALS: BP 155/74
[2024-09-15 19:34] VITALS: BP 167/71
[2024-09-16 05:53] VITALS: BP 142/72
--- NOTE | 2024-09-16 07:56 | NUR ---
ao3 pt assisted w repostioning and skin care, airborne precautions waiting for labs to r/o shingles, ble elevatd heels floated dressing dry intact, incontinence, kept dry. fall precautions in place, call light wn reach .
[2024-09-16 07:58] VITALS: BP 149/73
[2024-09-16 16:36] VITALS: BP 166/72
[2024-09-16 16:50] VITALS: BP 150/68
--- NOTE | 2024-09-16 17:01 | NUR ---
SHIFT SUMMARY: PATIENT HAS HAD NO NEW ACUTE CHANGES THIS SHIFT. PATIENT A/OX3, PLEASANT AND COOPERATIVE c CARE ALL SHIFT. DRESSING CHANGED TO BLE'S PER ORDER. PATIENT HAS GREAT APPETITE, INCONTINENT OF BOWEL/BLADDER, ATTENDS IN PLACED AND CHANGED T/O SHIFT. PATIENT RECEIVED SCHEDULED MEDS PER EMAR VITAL SIGNS REVIEWED. BED ALARM ON FOR SAFETY. CALL LIGHT IN REACH.
[2024-09-16 21:12] VITALS: BP 145/70
[2024-09-17 05:40] VITALS: BP 147/75
[2024-09-17 06:35] LABS: BASOPHILS ABSOLUTE AUTO 0.08 K/mm3 (0.00-0.23); BASOPHILS PERCENT AUTO 1 % (0-2); EOSINOPHILS ABSOLUTE AUTO 0.23 K/mm3 (0.00-0.68); EOSINOPHILS PERCENT AUTO 3 % (0-6); Hematocrit 29.7 % (33.0-51.0); Hemoglobin 9.4 g/dL (11.5-16.0); IMMATURE GRAN ABSOLUTE AUTO 0.09 K/mm3 (0.00-0.10); IMMATURE GRAN PERCENT AUTO 1 % (0-1); LYMPHOCYTES ABSOLUTE AUTO 1.58 K/mm3 (0.84-5.20); LYMPHOCYTES PERCENT AUTO 17 % (21-46); MONOCYTES ABSOLUTE AUTO 0.85 K/mm3 (0.16-1.47); MONOCYTES PERCENT AUTO 9 % (4-13); Mean Corpuscular HGB Conc 31.6 g/dL (31.5-36.5); Mean Corpuscular Volume 95 fL (80-100); Mean Platelet Volume 9.3 fL (9.1-12.4); NEUTROPHILS ABSOLUTE AUTO 6.48 K/mm3 (1.96-9.15); NEUTROPHILS PERCENT AUTO 70 % (41-73); Platelet Count 519 K/mm3 (150-400); RDW Coefficient Variation 16.1 % (11.7-14.2); RDW Standard Deviation 55.7 fL (35.1-46.3); Red Blood Cell Count 3.13 M/mm3 (3.80-5.20); White Blood Cell Count 9.31 K/mm3 (4.00-11.30)
[2024-09-17 06:42] LABS: VARICELLA-ZOSTER VIRUS BY PCR Not Detected; VARICELLA-ZOSTER VIRUS SOURCE Plasma
[2024-09-17 07:26] VITALS: BP 173/77
[2024-09-17 07:26] LABS: Bun/Creatinine Ratio 20.2 (12.0-20.0); Calcium, Blood 9.1 mg/dL (8.5-10.1); Creatinine, Blood 1.19 mg/dL (0.40-1.00); Potassium, Blood 4.1 mmol/L (3.5-5.5)
--- NOTE | 2024-09-17 08:08 | NUR ---
ao 4, airborne precatuions in place, labs still pending to r/o shingles. Medicated per emar, changed attends, kept dry , blood return from picc , labs drawn via picc this am. dressing intact heels floated, fall precautions, call light wn reach.
[2024-09-17] MEDS ORDERED: Torsemide 20 MG TAB PO SCH (09:00)
[2024-09-17 15:27] VITALS: BP 156/69
--- NOTE | 2024-09-17 17:32 | NUR ---
SHIFT SUMMARY PATIENT IN BED THIS SHIFT, DECLINING TO GET OUT OF BED FOR MEALS. AGREEABLE FOR WOUND CARE WHICH WAS PERFORMED THIS SHIFT. INCONTINENT OF URINE, NO BM. SKIN TO FEET PEELING OFF IN THICK LAYERS, SKIN UNDERNEATH INTACT. SKIN BETWEEN TOES MOIST, CLEANSED AND DRIED SEVERAL TIMES, NO OPEN AREAS HERE VISUALIZED. BLISTER AREA TO BACK OPEN TO AIR, SKIN IS RED. CONTINUE WITH ISOLATION PRECAUTIONS. NO C/O PAIN THIS SHIFT. ABLE TO MAKE NEEDS KNOWN. CALL LIGHT IN REACH, BED IN LOW POSITION. CARES ONGOING.
[2024-09-17 21:13] VITALS: BP 152/75
[2024-09-18 05:41] VITALS: BP 127/75
--- NOTE | 2024-09-18 06:14 | NUR ---
SHIFT SUMMARY PT IS A&OX3, DEMANDING. VSS ON RA. PT IS DYSPNEIC AND TACHYPNEIC JUST LAYING IN BED. DENIES PAIN. DRESSINGS TO BLE C/D/I. TOLERATING A REGULAR DIET, SNACKING FREQUENTLY. PT IS INCONTINENT OF URINE, BRIEF IN PLACE AND CHANGED NEEDED. PT DOES NOT CALL WHEN SHE NEEDS TO BE CLEANED UP. INCONTINENT BM X1 THIS SHIFT. MAINTAINED AIRBORNE/CONTACT PRECAUTIONS WAITING FOR TEST RESULTS. PT IS ADAMANT TO GO HOME, SHE STATES SHE WAS NOT AWARE OF GOING TO [facility]. BED IN LOWEST POSITION, CALL LIGHT WITHIN REACH.
[2024-09-18 07:16] VITALS: BP 158/83
[2024-09-18 14:58] LABS: SARS-Cov-2 (COVID-19) PCR, MMC NEGATIVE (NEGATIVE)
--- NOTE | 2024-09-18 16:00 | NUR ---
PT DISCHARGE SHOWING NO OXY PAIN MED ON CURRENT DISCHARGE. ONLY OLD LAST WEEK D/C. DESTROYED OXY HARD SCRIPT. ADVISED DR. RICE.
--- NOTE | 2024-09-18 16:00 | NUR ---
PT TO DISCHARGE TO SNF. CALLED REPORT TO ALDAIR MOYA.
--- NOTE | 2024-09-18 16:53 | NUR ---
1545 PICC PULLED BY [facility]ITALY.. [facility] TRANSPORT CAME BACK TO ROOM. STATES PT HAD FAMILY MEET THEM AT DOOR OF AMBULANCE. PT CHOSE TO BE TRANSPORTED BY FAMILY. GOT UP AND LEFT WITH FAMILY. TRANSPORT BROUGHT PACKET BACK TO ROOM. CALLED CARE MANAGEMENT TO ADVISE OF SITUATION. CALLED DR IRCE. UPDATED.
== END 2024-09-18 16:20 | DRG 871 ==
LOC: ER 15:07 → MEDS 18:29 → PCU 18:29 → ERHOLD 18:29 → ICUE 18:29 → PCU 09-06 → MEDS 09-07 13:33 → ENPENDDIS 09-13 16:21 → MEDS 09-13 19:28
PROVIDERS: Emergency Medicine; Internal Medicine; ADMIT Family Medicine
PROC: 3E03329 Introduction of Other Anti-infective into Peripheral Vein, Percutaneous Approach (ICD-10-PCS; 2024-09-04)
PROC: 3E033XZ Introduction of Vasopressor into Peripheral Vein, Percutaneous Approach (ICD-10-PCS; principal; 2024-09-05)
PROC: 30233J1 Transfusion of Nonautologous Serum Albumin into Peripheral Vein, Percutaneous Approach (ICD-10-PCS; 2024-09-05)
PROC: 02HV33Z Insertion of Infusion Device into Superior Vena Cava, Percutaneous Approach (ICD-10-PCS; 2024-09-05)
PROC: 3E03317 Introduction of Other Thrombolytic into Peripheral Vein, Percutaneous Approach (ICD-10-PCS; 2024-09-12)
DX: A41.52 Sepsis due to Pseudomonas (principal); N17.0 Acute kidney failure with tubular necrosis; L03.116 Cellulitis of left lower limb; L03.115 Cellulitis of right lower limb; I50.32 Chronic diastolic (congestive) heart failure; I42.1 Obstructive hypertrophic cardiomyopathy; I13.0 Hypertensive heart and chronic kidney disease with heart failure and stage 1 through stage 4 chronic kidney disease, or unspecified chronic kidney disease; I82.811 Embolism and thrombosis of superficial veins of right lower extremity; I87.8 Other specified disorders of veins; R65.20 Severe sepsis without septic shock; A40.8 Other streptococcal sepsis; Z68.39 Body mass index [BMI] 39.0-39.9, adult; F17.210 Nicotine dependence, cigarettes, uncomplicated; N18.32 Chronic kidney disease, stage 3b; E11.22 Type 2 diabetes mellitus with diabetic chronic kidney disease; I70.229 Atherosclerosis of native arteries of extremities with rest pain, unspecified extremity; E11.51 Type 2 diabetes mellitus with diabetic peripheral angiopathy without gangrene; D63.1 Anemia in chronic kidney disease; E66.9 Obesity, unspecified; R13.10 Dysphagia, unspecified; R05.9 Cough, unspecified; I87.2 Venous insufficiency (chronic) (peripheral); L27.0 Generalized skin eruption due to drugs and medicaments taken internally; T36.8X5A Adverse effect of other systemic antibiotics, initial encounter; B02.9 Zoster without complications; Z88.5 Allergy status to narcotic agent; Z79.84 Long term (current) use of oral hypoglycemic drugs; Z79.899 Other long term (current) drug therapy; Z90.710 Acquired absence of both cervix and uterus; Z98.890 Other specified postprocedural states; Z86.14 Personal history of Methicillin resistant Staphylococcus aureus infection
CPT/HCPCS: 36415; 36569; 51703; 71045; 73700; 75635; 76770; 80048; 80053; 80202; 81001; 82728; 82947; 83540; 83550; 83605; 83735; 83880; 84100; 85025; 87040; 87070; 87077; 87147; 87186; 87205; 87798; 92526; 92610; 94760; 94762; 96365; 96375; 97110; 97162; 97167; 97530; 97535; 99284-25; A9270; C1751; J0692; J1644; J1940; J2185; J2270; J2543; J2997; J3010; J3370; J7030; J7040; J7050; J7070; J7120; P9047; Q9967; U0002